=== PATIENT | female | born 1955 | race Caucasian/White ===

== ENCOUNTER → 2020-06-29 09:28 | Outpatient (BNVA) | payer BC, SELFPAY | PROVIDERS: PCP Internal Medicine; Referring Provider Internal Medicine; Visit Provider Internal Medicine Endocrinology, Diabetes & Metabolism | DX: E11.65 Type 2 diabetes mellitus with hyperglycemia (principal); Z79.4 Long term (current) use of insulin; E78.5 Hyperlipidemia, unspecified; I10 Essential (primary) hypertension; E04.2 Nontoxic multinodular goiter; E66.9 Obesity, unspecified; Z68.32 Body mass index [BMI] 32.0-32.9, adult | CPT/HCPCS: 82947 ==

== ENCOUNTER 2020-11-12 09:50 | Outpatient (REF) | payer BC, SELFPAY ==
[2020-11-12 11:35] LABS: Hematocrit 42.4 % (37-47); Hemoglobin 13.5 g/dl (12.0-16.0); Mean Corpuscular HGB Conc 31.8 g/dl (31.0-35.0); Mean Corpuscular Hemoglobin 25.5 pg (27.0-33.0); Mean Corpuscular Volume 80.2 fL (80-98); Mean Platelet Volume 11.1 fL (9.4-12.3); Platelet Count 228 X10*3/uL (160-400); Red Blood Count 5.29 X10*6/uL (4.20-5.50); Red Cell Distribution Width 13.5 % (11.0-16.0); White Blood Count 7.4 X10*3/uL (4.8-10.8)
[2020-11-12 12:06] LABS: Alanine Aminotransferase 25 U/L (0-31); Albumin Level 4.3 g/dL (3.5-5.0); Alkaline Phosphatase 79 U/L (39-117); Anion Gap 12 (12-20); Aspartate Amino Transferase 22 U/L (5-31); Bilirubin Total 0.4 mg/dL (0.0-1.0); Blood Urea Nitrogen 14 mg/dL (9-16); Calcium 9.2 mg/dL (8.4-10.2); Carbon Dioxide 29 mmol/L (22-29); Chloride 104 mmol/L (96-108); Cholesterol 141 mg/dL; Estimated Average Glucose 174 mg/dL; Estimated Glomerular Filt Rate > 60; Glucose Fasting 163 mg/dL (60-99); HDL Cholesterol 33 mg/dL; Hemoglobin A1c % 7.7 %; LDL Cholesterol Calculated 90 mg/dl; Potassium 4.3 mmol/L (3.3-5.1); Sodium 141 mmol/L (135-145); Total Protein 7.4 g/dL (6.5-8.0); Triglycerides 94 mg/dL
[2020-11-12 12:10] LABS: TSH reflex Free T4 1.08 uIU/mL (0.32-4.0)
[2020-11-12 12:14] LABS: Creatinine Urine 146.44 mg/dL; Microalbum/Creatinine Ratio Ur 13.6 ug/mg cr
== END 2020-11-12 09:51 | disposition home or self-care (01) ==
LOC: HO.LAB 09:50
PROVIDERS: Internal Medicine; PCP Internal Medicine; Visit Provider Internal Medicine
DX: E04.2 Nontoxic multinodular goiter (principal); E11.9 Type 2 diabetes mellitus without complications; E78.5 Hyperlipidemia, unspecified; I10 Essential (primary) hypertension
CPT/HCPCS: 36415; 80053; 80061; 82043; 83036; 84443; 85027; C9803; U0003; U0005

== ENCOUNTER 2020-11-12 09:56 | Outpatient (REF) | payer BC, SELFPAY | END 2020-11-12 09:57 | disposition home or self-care (01) | LOC: HO.LAB 09:56 | PROVIDERS: PCP Internal Medicine; Visit Provider Internal Medicine | DX: Z13.89 Encounter for screening for other disorder (principal) ==

== ENCOUNTER → 2020-12-14 07:49 | Outpatient (BNVA) | payer BC, SELFPAY | PROVIDERS: PCP Internal Medicine; Visit Provider Internal Medicine Endocrinology, Diabetes & Metabolism | DX: E11.9 Type 2 diabetes mellitus without complications (principal); Z79.4 Long term (current) use of insulin; E78.5 Hyperlipidemia, unspecified; I10 Essential (primary) hypertension; E04.2 Nontoxic multinodular goiter; E66.9 Obesity, unspecified | CPT/HCPCS: 82947 ==

== ENCOUNTER 2020-12-18 16:25 | Outpatient (REF) | payer BC, SELFPAY ==
--- NOTE | ~2020-12-18 | MR_ITS ---
EXAMINATION: MR CERVICAL SPINE WITHOUT CONTRAST CLINICAL INFORMATION: Discomfort in neck with bilateral arm numbness. COMPARISON: None TECHNIQUE: MRI of the cervical spine was obtained using routine sequences without contrast. FINDINGS: VERTEBRAL BODIES AND PARASPINAL SOFT TISSUES: The marrow signal is within normal limits. There is qopr-lx-ppzniytr disc space narrowing with degenerative disc bulges and endplate spurring from the C4 through the C7 levels. There are no compression fractures or subluxations. There is a reversal of the normal cervical lordosis. Mild leftward curvature of the cervical spine also evident. The paraspinal soft tissues appear normal. The vertebral artery flow-voids are maintained. The lung apices are clear. CERVICOMEDULLARY JUNCTION AND VISUALIZED POSTERIOR FOSSA: The craniovertebral junction and imaged portions of the brain parenchyma are normal. No cord signal abnormality or syrinx is seen. SPINAL LEVELS: C2-C3: Very small central disc protrusion. No central canal stenosis or foraminal narrowing. C3-C4: No disc pathology. No central canal stenosis or foraminal narrowing. C4-C5: Broad-based disc-osteophyte complex mildly impresses upon the ventral cord with mild central canal stenosis and severe right foraminal encroachment. C5-C6: Retrosubluxation and disc-osteophyte complex with a right paracentral disc protrusion results in moderate central canal stenosis and xoau-uk-ogxvpsyd cord deformity with severe right foraminal encroachment and sboq-pe-tgknyukk left foraminal narrowing. C6-C7: Disc-osteophyte complex with moderate central canal stenosis. Small central disc protrusion also noted. Severe left foraminal narrowing and vowj-wj-vnhsqnpp right foraminal encroachment. C7-T1: No disc pathology. No central canal stenosis or foraminal narrowing. Left-sided hypertrophic facet arthropathy. MR/MR cervical spine wo con IMPRESSION: Multilevel cervical spondylosis, most significant at the C5-C6 and C6-C7 levels with moderate central canal stenosis and sogf-dv-bsikdnxx cord deformity. Small disc protrusions at both levels. Severe right foraminal narrowing at the C5-C6 level and significant left foraminal narrowing at the C6-C7 level. Shallow disc-osteophyte complex and mild central canal stenosis at C4-C5 with severe right foraminal narrowing.
== END 2020-12-18 16:26 | disposition home or self-care (01) ==
LOC: HO.MRI 16:25
PROVIDERS: Visit Provider Internal Medicine
DX: M47.12 Other spondylosis with myelopathy, cervical region (principal); M48.02 Spinal stenosis, cervical region
CPT/HCPCS: 72141

== ENCOUNTER 2021-04-05 09:58 | Outpatient (REF) | payer BC, SELFPAY ==
--- NOTE | ~2021-04-05 | US_ITS ---
EXAMINATION: US THYROID CLINICAL INFORMATION: Nontoxic multinodular goiter. COMPARISON: Thyroid ultrasound 04/02/2020 and 01/21/2019. TECHNIQUE: Linear transducer grayscale and color Doppler examination with attention to the region of the thyroid. FINDINGS: SIZE: Measurements of the thyroid lobes and nodules are given in sagittal, anteroposterior and transverse dimensions respectively. Right Thyroid Lobe: 5.9 x 1.9 x 2.0 cm, volume 11.8 mL. Previously 5.1 x 1.7 x 2.1 cm, volume 9.5 mL. Parenchyma: The gland echotexture is heterogeneous. Thyroid vascularity is normal. Left Thyroid Lobe: 5.7 x 1.8 x 1.6 cm, volume 8.6 mL. Previously 5.5 x 1.4 x 2.1 cm, volume 8.5 mL. Parenchyma: The gland echotexture is heterogeneous. Thyroid vascularity is normal. Isthmus: 0.6 cm in maximum AP dimension. Previously 0.5 cm. Estimated total number of nodules greater than or equal to 1 cm: 5. [employer] nodules are described as follows: 1. Location: Isthmus. Size: 1.1 x 0.6 x 1.0 cm, volume 0.34 mL. Previously: 1.3 x 0.6 x 1.1 cm, volume 0.46 mL. Nodule characteristics: Composition: Cannot be determined (2). Echogenicity: Hypoechoic (2). Shape: Not taller than wide (0). Margins: Smooth (0). Echogenic Foci: None (0). ACR TI-RADS total points: 4 ACR TI-RADS category: 4 Significant change in size (>/= 20% in 2 dimensions and minimal increase of 2 mm or 50% or greater increase in volume): No Change in features: No Change in ACR TI-RADS risk category: No 2. Location: Right upper pole. Size: 1.2 x 0.7 x 1.0 cm, volume 0.45 mL. Previously: 1.3 x 0.7 x 1.1 cm, volume 0.54 mL. Nodule characteristics: Composition: Spongiform (0). ACR TI-RADS total points: 0 ACR TI-RADS category: 1 Significant change in size (>/= 20% in 2 dimensions and minimal increase of 2 mm or 50% or greater increase in volume): No Change in features: No Change in ACR TI-RADS risk category: No 3. Location: Right mid pole. Size: 1.1 x 0.5 x 0.7 cm, volume 0.18 mL. Previously: Not documented. Nodule characteristics: Composition: Spongiform (0). ACR TI-RADS total points: 0 ACR TI-RADS category: 1 4. Location: Right mid pole. Size: 1.3 x 1.3 x 1.4 cm, volume 1.2 mL. Previously: 2.1 x 1.5 x 1.7 cm, volume 2.8 mL. Nodule characteristics: Composition: Spongiform (0). ACR TI-RADS total points: 0 ACR TI-RADS category: 1 Significant change in size (>/= 20% in 2 dimensions and minimal increase of 2 mm or 50% or greater increase in volume): No Change in features: No Change in ACR TI-RADS risk category: No 5. Location: Left upper pole. Size: 1.0 x 0.4 x 0.7 cm, volume 0.15 mL. Previously: 0.5 x 0.3 x 0.6 cm, volume 0.05 mL. Nodule characteristics: Composition: Spongiform (0). ACR TI-RADS total points: 0 ACR TI-RADS category: 1 Significant change in size (>/= 20% in 2 dimensions and minimal increase of 2 mm or 50% or greater increase in volume): Yes Change in features: No Change in ACR TI-RADS risk category: No NODES: No lymphadenopathy is seen in the tissue surrounding the thyroid gland. US/US thyroid IMPRESSION: 1. Bilateral thyroid nodules are redemonstrated, as above. Recommend continued ultrasound surveillance. 2. There is a mild goiter, right lobe greater than left. 3. There is heterogeneous thyroid echotexture, which can be associated with thyroiditis. ACR TI-RADS RECOMMENDATION REFERENCE: Ultrasound-guided fine-needle aspiration, followup ultrasound, no further follow up. * TR1 (0 point) and TR 2 (2 points): No FNA or follow up * TR3 (3 points): FNA if more than or equal to 2.5 cm in maximum dimension, followup ultrasound in 1, 3 and 5 years if 1.5 to 2.4 cm in maximum dimension. * TR4 (4-6 points): FNA if more than or equal to 1.5 cm in maximum dimension, followup ultrasound in 1, 2, 3 and 5 years if 1 to 1.4 cm in maximum dimension. * TR5 (more than or equal to 7 points): FNA if more than or equal to 1 cm in maximum dimension, followup ultrasound every year for 5 years if 0.5 to 0.9 cm in maximum dimension. * TR3, TR4 or TR5 nodules that are below the size threshold for follow up receive no follow up.
== END 2021-04-05 09:59 | disposition home or self-care (01) ==
LOC: HO.HMGCX 09:58
PROVIDERS: PCP Internal Medicine; Visit Provider Internal Medicine
DX: E04.2 Nontoxic multinodular goiter (principal)
CPT/HCPCS: 76536

== ENCOUNTER 2021-04-08 11:48 | Outpatient (REF) | payer BC, SELFPAY | END 2021-04-08 11:49 | disposition home or self-care (01) | LOC: HO.LNP 11:48 | PROVIDERS: Visit Provider Hospitalist | DX: Z20.822 Contact with and (suspected) exposure to COVID-19 (principal); J01.90 Acute sinusitis, unspecified | CPT/HCPCS: U0003; U0005 ==

== ENCOUNTER → 2021-04-21 08:55 | Outpatient (BNVA) | payer BC, SELFPAY | PROVIDERS: PCP Internal Medicine; Visit Provider Internal Medicine | DX: E11.9 Type 2 diabetes mellitus without complications (principal); E78.5 Hyperlipidemia, unspecified; E04.2 Nontoxic multinodular goiter; E55.9 Vitamin D deficiency, unspecified; I10 Essential (primary) hypertension | CPT/HCPCS: 82947; 83036 ==

== ENCOUNTER 2021-08-12 08:51 | Outpatient (REF) | payer BC, SELFPAY ==
--- NOTE | 2021-08-12 09:57 | P.BOP_ITS ---
Brief Operative Note Date of Service: 08/12/21 Pre-op diagnosis: Multinodular Thyroid Procedure: This is doctor Chloe Hood. This is an ultrasound-guided fine-needle aspiration report. Date of 08/12/2021 Examination: FNA Biopsy of thyroid nodules Indication: Multinodular Thyroid Porcedure: Procedure was explained to the patient. Alternatives, the risk and benefits were discussed. Written consent was obtained. A time-out was also obtained. After sterile preparation, fine-needle aspiration of a left mid pole 1.1 cm thyroid nodule was performed using direct ultrasound guidance to confirm accurate needle placement. Four aspirations were made using 27 gauge needles. An additional 2 aspirations were made using 25 guage needles. Samples were submitted for cytology. One pass was dedicated for [employer] sequencing speech and language assistant testing. The patient tolerated the procedure well. Aftercare instructions were provided. Impression: Uncomplicated fine needle aspiration biopsy of a left mid pole 1.1 cm thyroid nodule under ultrasound guidance. She additionally has a right isthmus 1.1 cm, right mid pole 1.4 and right mid pole 1.7 cm thyroid nodules that require FNA biopsy. She was unable to tolerate FNA biopsy of these nodules today so she will be called back at a later date for this. Surgeon: Chloe Hood, DO Was an Aesthetics Instructor used for this Procedure?: No Estimated blood loss (mL): 0
[2021-08-12] MEDS: Lidocaine HCl 1 % MPF 5 ML VIAL 2 ML SUBCUT (11:40)
== END 2021-08-12 08:52 | disposition home or self-care (01) ==
LOC: HO.US 08:51
PROVIDERS: Visit Provider Internal Medicine
DX: E04.2 Nontoxic multinodular goiter (principal)
CPT/HCPCS: 10005; 88172; 88173; 88177; 88305

== ENCOUNTER 2021-08-24 07:10 | Outpatient (REF) | payer BC, SELFPAY ==
[2021-08-24 11:36] LABS: Estimated Average Glucose 206 mg/dL; Hemoglobin A1c % 8.8 %
[2021-08-24 12:05] LABS: Alanine Aminotransferase 29 U/L (0-31); Albumin Level 4.2 g/dL (3.5-5.0); Alkaline Phosphatase 69 U/L (39-117); Anion Gap 16 (12-20); Aspartate Amino Transferase 25 U/L (5-31); Bilirubin Total 0.6 mg/dL (0.0-1.0); Blood Urea Nitrogen 12 mg/dL (9-16); Calcium 9.9 mg/dL (8.4-10.2); Carbon Dioxide 28 mmol/L (22-29); Chloride 104 mmol/L (96-108); Cholesterol 149 mg/dL; Estimated Glomerular Filt Rate > 60; Glucose Fasting 109 mg/dL (60-99); HDL Cholesterol 30 mg/dL; LDL Cholesterol Calculated 97 mg/dl; Potassium 4.2 mmol/L (3.3-5.1); Sodium 144 mmol/L (135-145); Total Protein 7.6 g/dL (6.5-8.0); Triglycerides 111 mg/dL
[2021-08-24 12:16] LABS: Creatinine Urine 153.38 mg/dL; Microalbum/Creatinine Ratio Ur 17.6 ug/mg cr
[2021-08-25 09:16] LABS: LDL Cholesterol Direct 104 mg/dL (<100)
== END 2021-08-24 07:11 | disposition home or self-care (01) ==
LOC: HO.HMGCLDS 07:10
PROVIDERS: Referring Provider Internal Medicine; Visit Provider Internal Medicine
DX: E11.9 Type 2 diabetes mellitus without complications (principal); I10 Essential (primary) hypertension
CPT/HCPCS: 36415; 80053; 80061; 82043; 83036; 83721

== ENCOUNTER → 2021-08-25 10:23 | Outpatient (BNVA) | payer BC, SELFPAY | PROVIDERS: PCP Internal Medicine; Visit Provider Internal Medicine ==

== ENCOUNTER → 2021-10-20 08:44 | Outpatient (BNVA) | payer BC, SELFPAY | PROVIDERS: PCP Internal Medicine; Visit Provider Internal Medicine | DX: E04.2 Nontoxic multinodular goiter (principal); E78.5 Hyperlipidemia, unspecified; E55.9 Vitamin D deficiency, unspecified; I10 Essential (primary) hypertension; E11.9 Type 2 diabetes mellitus without complications | CPT/HCPCS: 82947 ==

== ENCOUNTER → 2021-11-18 10:58 | Outpatient (BNVA) | payer BC, SELFPAY | PROVIDERS: PCP Internal Medicine; Visit Provider Registered Nurse Diabetes Educator | DX: Z13.89 Encounter for screening for other disorder (principal) ==

== ENCOUNTER 2021-11-22 10:04 | Outpatient (REF) | payer BC, SELFPAY ==
--- NOTE | ~2021-11-22 | XR_ITS ---
EXAMINATION: XR KNEE AP STANDING-BILATERAL XR KNEE-LATERAL VIEW-BILATERAL CLINICAL INFORMATION: Right knee pain. COMPARISON: None TECHNIQUE: AP bilateral standing view of the knees was obtained. Additional weightbearing lateral view only of each knee was also obtained. FINDINGS: Right knee: The bony alignments are intact. The cortices are intact. Articular margins, joint space appear unremarkable. No evidence of any effusion. Subcentimeter oval shaped calcification is noted projecting over the medial femoral condyle, most consistent with medial collateral ligamentous calcification. Left knee: The bony alignments are intact. The cortices are intact. Articular margins, joint space appear unremarkable. No evidence of any joint effusion. Soft tissues are unremarkable. XR/XR knee standing BI IMPRESSION: 1. Subcentimeter oval-shaped soft tissue calcification projecting over the right medial femoral condyle, most consistent with medial collateral ligamentous calcification. 2. Radiographically unremarkable left knee.
== END 2021-11-22 10:05 | disposition home or self-care (01) ==
LOC: HO.HMGCX 10:04
PROVIDERS: Visit Provider Internal Medicine
DX: M25.561 Pain in right knee (principal); M25.562 Pain in left knee
CPT/HCPCS: 73565

== ENCOUNTER 2022-01-04 09:00 | Outpatient (RCR) | payer BC, SELFPAY ==
--- NOTE | 2021-12-10 16:16 | MHC.PT.EP ---
[facility] [place] Office [place] [facility] [place] [facility] [address] Xavier Swanson [address] [phone] F: [phone] F: [phone] F: [phone] F: [phone] Physical Therapy Plan of Care Date of Evaluation: Date of Surgery: Diagnosis: B knee pain Assessment: Pt is a 66 y/o female referred to PT for eval and treat of B knee pain who presents with signs and Sx consistent with R > L knee dysfunction resulting in decreased tolerance and ability to perform walking for long duration , standing tasks for duration, negotiating stairs, performing squatting activities and heavy HH chores secondary to decreased B hip and knee strength, as well as, increased quad tissue tension, and pain. Pt is deemed an appropriate candidate to receive skilled PT in order to address her physical limitations to improve her functional ability. Frequency and Duration: The patient will be seen 2 x/wk x 4 wks. Short Term Goals: Initiate HEP. Vamp Maker Goals: I with HEP. Pt will be able to negotiate 1 fl of stairs with at most a little bit of difficulty; initial: quite a bit of difficulty. Pt will be able to walk 1 mile with managed Sx; initial: moderate difficulty. Improve b knee ext MMT by at least 1/2 MMT; initial: R 4/5, L 4+/5 Treatment Plan: Modalities to reduce pain, spasms and effusion. Manual therapy to restore motion and function. Therapeutic exercise to improve strength and flexibility. Neuromuscular re-education for posture and balance. Therapeutic activities to return to functional activities of daily living. Electronically signed by: Wicho Rayo PT. Please sign and return to therapist. Thank you for your referral.
--- NOTE | 2022-03-30 16:07 | MHC.PT.DC ---
[facility] [place] Office [place] Office [place] Office [address] Xavier Swanson [address] [phone] F: [phone] F: [phone] F: [phone] F: [phone] Physical Therapy Discharge Report Diagnosis: B knee pain Date of Surgery: Date of Evaluation: 12/10/21 Date of Discharge: 03/30/22 Treatments to Date: 4 Cancellations to Date: No Shows to Date: Discharge Status: Patient Elected to Stop Discharge Summary: Pt TTP patella tendon. Patella hypo mobile laterally. Decreased c/o pain after manual RX. Pt reducing to 1 x week due to busy reza and high co pay Electronically signed by: Wicho Rayo PT. Please sign and return to therapist. Thank you for your referral.
== END 2022-03-30 16:06 | disposition home or self-care (01) ==
LOC: HO.PTCHIC 09:00
PROVIDERS: PCP Internal Medicine; Visit Provider Internal Medicine
DX: M25.561 Pain in right knee (principal); M25.562 Pain in left knee
CPT/HCPCS: 97110; 97140; 97161

== ENCOUNTER 2022-04-15 07:25 | Outpatient (REF) | payer BC, SELFPAY ==
--- NOTE | ~2022-04-15 | XR_ITS ---
EXAMINATION: XR KNEE, RIGHT ONE VIEW XR KNEE, LEFT ONE VIEW CLINICAL INFORMATION: Pain. COMPARISON: Bilateral knee radiographs dated 11/22/2021. TECHNIQUE: [place] view of the right and left knee. FINDINGS: RIGHT KNEE: Normal patellofemoral alignment. Mild patellofemoral compartment joint space narrowing with tiny marginal osteophytes, unchanged. No lytic or blastic osseous lesion. LEFT KNEE: Normal patellofemoral alignment. Mild patellofemoral compartment joint space narrowing with tiny marginal osteophytes, unchanged. No lytic or blastic osseous lesion. XR/XR knee LT 1V IMPRESSION: RIGHT KNEE: Mild patellofemoral compartment osteoarthritis, unchanged. Normal alignment. LEFT KNEE: Mild patellofemoral compartment osteoarthritis, unchanged. Normal alignment.
--- NOTE | ~2022-04-15 | XR_ITS ---
EXAMINATION: XR KNEE, RIGHT ONE VIEW XR KNEE, LEFT ONE VIEW CLINICAL INFORMATION: Pain. COMPARISON: Bilateral knee radiographs dated 11/22/2021. TECHNIQUE: [place] view of the right and left knee. FINDINGS: RIGHT KNEE: Normal patellofemoral alignment. Mild patellofemoral compartment joint space narrowing with tiny marginal osteophytes, unchanged. No lytic or blastic osseous lesion. LEFT KNEE: Normal patellofemoral alignment. Mild patellofemoral compartment joint space narrowing with tiny marginal osteophytes, unchanged. No lytic or blastic osseous lesion. XR/XR knee RT 1V IMPRESSION: RIGHT KNEE: Mild patellofemoral compartment osteoarthritis, unchanged. Normal alignment. LEFT KNEE: Mild patellofemoral compartment osteoarthritis, unchanged. Normal alignment.
== END 2022-04-15 07:26 | disposition home or self-care (01) ==
LOC: HO.HOSX 07:25
PROVIDERS: Visit Provider Physician Assistant
DX: M25.561 Pain in right knee (principal); M25.562 Pain in left knee
CPT/HCPCS: 73560

== ENCOUNTER 2022-06-23 13:19 | Outpatient (REF) | payer BC, SELFPAY ==
--- NOTE | 2022-06-23 08:30 | EMG_ITS ---
Right median and ulnar motor and sensory studies were performed. Right radial sensory studies were performed and EMG study was performed. IMPRESSION: 1. 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 2. Mild right ulnar neuropathy across cubital tunnel. MD AMITA Anderson/ROZINA / [id number]
== END 2022-06-23 13:20 | disposition home or self-care (01) ==
LOC: HO.NEURO 13:19
PROVIDERS: PCP Internal Medicine; Visit Provider Internal Medicine
DX: G56.01 Carpal tunnel syndrome, right upper limb (principal)
CPT/HCPCS: 95886; 95909

== ENCOUNTER 2022-06-28 11:28 | Outpatient (REF) | payer BC, SELFPAY ==
[2022-06-28 14:26] LABS: Estimated Average Glucose 203 mg/dL; Hemoglobin A1c % 8.7 %
[2022-06-28 15:03] LABS: Free T4 (Free Thyroxine) 0.85 ng/dL (0.71-1.85); Thyroid Stimulating Hormone 0.57 uIU/mL (0.32-4.0); Vitamin D 25-OH Total 21.2 ng/mL (>30)
[2022-06-28 15:04] LABS: Alanine Aminotransferase 25 U/L (0-31); Albumin Level 4.1 g/dL (3.5-5.0); Alkaline Phosphatase 65 U/L (39-117); Anion Gap 12 (12-20); Aspartate Amino Transferase 21 U/L (5-31); Bilirubin Total 0.5 mg/dL (0.0-1.0); Blood Urea Nitrogen 12 mg/dL (9-16); Calcium 9.3 mg/dL (8.4-10.2); Carbon Dioxide 26 mmol/L (22-29); Chloride 105 mmol/L (96-108); Cholesterol 123 mg/dL; Estimated Glomerular Filt Rate > 60; Glucose Fasting 192 mg/dL (60-99); Glucose Random 192 mg/dL (60-115); HDL Cholesterol 33 mg/dL; LDL Cholesterol Calculated 74 mg/dl; Potassium 4.3 mmol/L (3.3-5.1); Sodium 139 mmol/L (135-145); TSH reflex Free T4 0.58 uIU/mL (0.32-4.0); Total Protein 7.2 g/dL (6.5-8.0); Triglycerides 80 mg/dL
[2022-06-28 15:06] LABS: Creatinine Urine 248.45 mg/dL; Microalbum/Creatinine Ratio Ur 11.2 ug/mg cr
[2022-07-01 09:47] LABS: LDL Cholesterol Direct 83 mg/dL (<100)
== END 2022-06-28 11:29 | disposition home or self-care (01) ==
LOC: HO.HMGCLDS 11:28
PROVIDERS: Absent Provider Internal Medicine; PCP Internal Medicine; Visit Provider Internal Medicine
DX: E11.9 Type 2 diabetes mellitus without complications (principal); I10 Essential (primary) hypertension; E04.2 Nontoxic multinodular goiter; E55.9 Vitamin D deficiency, unspecified; E78.5 Hyperlipidemia, unspecified
CPT/HCPCS: 36415; 80053; 80061; 82043; 82306; 83036; 83721; 84439; 84443

== ENCOUNTER 2022-12-06 09:12 | Outpatient (REF) | payer BC, SELFPAY ==
[2022-12-06 11:14] LABS: MANUAL DIFF FLAG NO
[2022-12-06 11:32] LABS: Basophils Absolute Auto 0.1 X10*3/uL (0.0-0.2); Basophils Percent Auto 0.9 % (0-2); Eosinophils Absolute Auto 0.1 X10*3/uL (0.0-0.4); Eosinophils Percent Auto 2.4 % (0-4); Hematocrit 42.2 % (37.0-47.0); Hemoglobin 13.6 g/dl (12.0-16.0); Imm Gran Abs Auto 0.02 X10*3/uL (0.00-0.03); Imm Gran Pct Auto 0.3 % (0.0-0.4); Lymphocytes Absolute Auto 1.6 X10*3/uL (1.2-4.9); Lymphocytes Percent Auto 28.4 % (20-40); Mean Corpuscular HGB Conc 32.2 g/dl (31.0-35.0); Mean Corpuscular Hemoglobin 25.4 pg (27.0-33.0); Mean Corpuscular Volume 78.9 fL (80.0-98.0); Mean Platelet Volume 10.5 fL (9.4-12.3); Monocytes Absolute Auto 0.5 X10*3/uL (0.1-1.2); Monocytes Percent Auto 7.9 % (2-11); Neutrophils Absolute Auto 3.4 x10*3/uL (2.0-8.3); Neutrophils Percent Auto 60.1 % (45-73); Platelet Count 201 X10*3/uL (160-400); Red Blood Count 5.35 X10*6/uL (4.20-5.50); Red Cell Distribution Width 13.6 % (11.0-16.0); White Blood Count 5.7 X10*3/uL (4.8-10.8)
[2022-12-06 11:42] LABS: Estimated Average Glucose 203 mg/dL; Hemoglobin A1c % 8.7 %
[2022-12-06 11:57] LABS: Alanine Aminotransferase 27 U/L (0-31); Albumin Level 4.1 g/dL (3.5-5.0); Alkaline Phosphatase 68 U/L (39-117); Anion Gap 12 (12-20); Aspartate Amino Transferase 22 U/L (5-31); Bilirubin Total 0.6 mg/dL (0.0-1.0); Blood Urea Nitrogen 11 mg/dL (9-16); Calcium 9.6 mg/dL (8.4-10.2); Carbon Dioxide 26 mmol/L (22-29); Chloride 106 mmol/L (96-108); Cholesterol 142 mg/dL; Estimated Glomerular Filt Rate > 60; Glucose Fasting 180 mg/dL (60-99); HDL Cholesterol 32 mg/dL; LDL Cholesterol Calculated 98 mg/dl; Potassium 4.4 mmol/L (3.3-5.1); Sodium 140 mmol/L (135-145); Total Protein 7.2 g/dL (6.5-8.0); Triglycerides 64 mg/dL
[2022-12-06 12:07] LABS: Creatinine Urine 84.21 mg/dL; Microalbum/Creatinine Ratio Ur 9.5 ug/mg cr
[2022-12-06 12:16] LABS: TSH reflex Free T4 0.73 uIU/mL (0.32-4.0); Vitamin D 25-OH Total 63.7 ng/mL (>30)
== END 2022-12-06 09:13 | disposition home or self-care (01) ==
LOC: HO.HMGCLDS 09:12
PROVIDERS: PCP Internal Medicine; Visit Provider Internal Medicine
DX: E11.9 Type 2 diabetes mellitus without complications (principal); E55.9 Vitamin D deficiency, unspecified; E78.5 Hyperlipidemia, unspecified; I10 Essential (primary) hypertension; M79.7 Fibromyalgia
CPT/HCPCS: 36415; 80053; 80061; 82043; 82306; 83036; 84443; 85025

== ENCOUNTER 2023-07-25 09:57 | Outpatient (REF) | payer MEDICARE, SELFPAY ==
[2023-07-25 13:12] LABS: MANUAL DIFF FLAG NO
[2023-07-25 13:29] LABS: Basophils Absolute Auto 0.1 X10*3/uL (0.0-0.2); Basophils Percent Auto 0.8 % (0-2); Eosinophils Absolute Auto 0.1 X10*3/uL (0.0-0.4); Hematocrit 41.5 % (37.0-47.0); Hemoglobin 13.6 g/dl (12.0-16.0); Imm Gran Abs Auto 0.02 X10*3/uL (0.00-0.03); Imm Gran Pct Auto 0.3 % (0.0-0.4); Lymphocytes Absolute Auto 1.6 X10*3/uL (1.2-4.9); Lymphocytes Percent Auto 25.7 % (20-40); Mean Corpuscular HGB Conc 32.8 g/dl (31.0-35.0); Mean Corpuscular Hemoglobin 26.3 pg (27.0-33.0); Mean Corpuscular Volume 80.3 fL (80.0-98.0); Mean Platelet Volume 10.7 fL (9.4-12.3); Monocytes Absolute Auto 0.5 X10*3/uL (0.1-1.2); Monocytes Percent Auto 7.6 % (2-11); Neutrophils Absolute Auto 3.9 x10*3/uL (2.0-8.3); Neutrophils Percent Auto 63.6 % (45-73); Platelet Count 207 X10*3/uL (160-400); Red Blood Count 5.17 X10*6/uL (4.20-5.50); Red Cell Distribution Width 13.8 % (11.0-16.0); White Blood Count 6.2 X10*3/uL (4.8-10.8)
[2023-07-25 13:43] LABS: Estimated Average Glucose 177 mg/dL; Hemoglobin A1c % 7.8 % (<6.0)
[2023-07-25 13:48] LABS: Alanine Aminotransferase 27 U/L (0-31); Albumin Level 4.1 g/dL (3.5-5.0); Alkaline Phosphatase 63 U/L (39-117); Anion Gap 12 (12-20); Aspartate Amino Transferase 26 U/L (5-31); Bilirubin Total 0.6 mg/dL (0.0-1.0); Blood Urea Nitrogen 10 mg/dL (9-16); Calcium 9.3 mg/dL (8.4-10.2); Carbon Dioxide 28 mmol/L (22-29); Chloride 106 mmol/L (96-108); Cholesterol 138 mg/dL (<200); Estimated Glomerular Filt Rate > 60; Glucose Fasting 95 mg/dL (60-99); HDL Cholesterol 33 mg/dL (>40); LDL Cholesterol Calculated 90 mg/dL (<100); Potassium 4.3 mmol/L (3.3-5.1); Sodium 142 mmol/L (135-145); Total Protein 7.5 g/dL (6.5-8.0); Triglycerides 78 mg/dL (<150)
[2023-07-25 14:07] LABS: Creatinine Urine 251.85 mg/dL
== END 2023-07-25 09:58 | disposition home or self-care (01) ==
LOC: HO.HMGCLDS 09:57
PROVIDERS: PCP Internal Medicine; Visit Provider Internal Medicine
DX: Z00.00 Encounter for general adult medical examination without abnormal findings (principal); E11.9 Type 2 diabetes mellitus without complications; I10 Essential (primary) hypertension; E78.5 Hyperlipidemia, unspecified
CPT/HCPCS: 36415; 80053; 80061; 82043; 82570; 83036; 85025

== ENCOUNTER 2023-07-27 08:47 | Outpatient (AMB) | payer MEDICARE, SELFPAY ==
[2023-07-27 08:53] VITALS: BP 120/76; PULSE 86; O2SAT 98; BMI 33.1
--- NOTE | 2023-07-27 08:53 | A.OFFPC_ITS ---
Vital Signs 07/27/23 08:53 Height 5 ft 4.5 in Weight 196 lb BMI 33.1 BP 120/76 Blood Pressure Location Rt brachial Position Sitting Pulse 86 Pulse Source Pulse Oximeter Pulse Oximetry (%) 98 Intake Visit Reasons: Annual PE Intake Note: pt is here for annual exam physical exam, last colonoscopy 2012 ( repeat every 10 years) due 2023. Safety Consultant Required: No Accompanied by: Self / Same As Patient Allergies canagliflozin [Invokana] Allergy (Unknown, Verified 07/27/23 08:54) frequent UTI dulaglutide [Trulicity] Allergy (Unknown, Verified 07/27/23 08:54) vomiting metformin Allergy (Unknown, Verified 07/27/23 08:54) diarrhea atorvastatin [From Lipitor] Adverse Reaction (Intermediate, Verified 07/27/23 08:54) Muscle Pain Olmesartan Medoxomil Allergy (Unknown, Uncoded 12/09/22 09:37) palpitations Medication List - Last Reconciled 07/27/23 by Jessica Vernon MD blood-glucose sensor (Dexcom G6 Sensor device) 1 ea topical .Every 10 days 90 days blood-glucose transmitter 1 transmitter every 3 months. Use as directed. cetirizine (Zyrtec) 10 mg PO DAILY PRN [CPAP Supplies 12 cm H2O,via full mask; DX NORA] cyclosporine 0.05% (Restasis) 1 drp ophthalmic (eye) BID escitalopram oxalate 10 mg PO DAILY esomeprazole magnesium (Nexium 24HR) 20 mg PO DAILY PRN insulin glargine (Lantus Solostar U-100 Insulin) 75 units (0.75 mL) subcut DAILY 90 days insulin lispro (Humalog KwikPen (U-100) Insulin) 1 to 20 unts before each meal based on sliding scale subcut 4 times a day; 90 days irbesartan 75 MG, 1 and 1/2 tabl PO daily; lancets As directed pen needle, diabetic (BD Ultra-Fine [place] Pen Needle) 1 ea subcut .five times a day 90 days Tobacco use date assessed: 07/27/23 Fall risk assessment: No Falls in past year Last assessed Fall Risk: 07/27/23 Dental Screening Dental Screen Date: 07/27/23 Did you have a dental visit in the last 12 months?: Yes Did you have a dental problem in the last 6 months where you did not have access to dental care?: No Was dental information given to patient?: Patient has dentist HPI Annual PE HPI Details Pt presents for PE. Patient has been under lot of stress related to her nephew diagnosed with end-stage liver cirrhosis. Patient reports improved diabetes controlled with fasting glucose between 120-160 PFSH Medical History Knee pain, right Knee pain, bilateral Vitamin D deficiency Cervical disc disease with myelopathy Cataract Rash Tinnitus Obesity Non-toxic multinodular goiter FCI (current) use of insulin NORA (obstructive sleep apnea) Radiculopathy, cervical region Diabetic eye exam History of mammogram Left shoulder tendinitis Anxiety and depression Hyperlipidemia Hypertension Type 2 diabetes mellitus Surgical History History of carpal tunnel surgery Hx of biopsy Hx of cataract surgery S/P MALACHI-BSO H/O colonoscopy Family History Father Heart problem Diabetes Mother Mental health disorder Social History Housing: House Alcohol intake: never Patient Tobacco Use Status: Former Tobacco user e-Cigarette/Vaping Use: Never Used service: No Current occupational status: retired Cognitive needs: No Hearing needs: No Vision needs: Yes Questionnaire Thrive Questionnaire Date Thrive assessed: 12/09/22 DEBBI-7 AMB Questionnaire DEBBI-7 Date DEBBI - 7 assessed: 12/09/22 Source: Developed by Drs. Marco Antonio Mary, Dinorah Sherman, Rafael Vera and colleagues, with an educational ignacio from [employer]. Review of Systems Const All systems reviewed & are unremarkable except as noted in HPI and below Reports no additional complaints Eyes Reports no additional complaints ENT Reports no additional complaints Card Reports no additional complaints Resp Reports no additional complaints GI Reports no additional complaints Reports no additional complaints Physical exam (Primary Care) Vital Signs: Last Vital Signs Pulse 86 07/27/23 08:53 BP 152/86 H 07/27/23 08:53 Pulse Ox 98 07/27/23 08:53 BMI result Body Mass Index 33.1 Tobacco/Smoking Status: Tobacco use Status Tobacco use date assessed 07/27/23 07/27/23 08:55 Patient Tobacco Use Status Former Tobacco user 07/27/23 08:55 e-Cigarette/Vaping Use Never Used 07/27/23 08:55 Thrive Assessment: Date of Thrive Assessment Date Thrive assessed 12/09/22 07/27/23 08:55 Const General: no acute distress HENMT Head: Yes normal to inspection Ears: hearing grossly normal bilaterally General nose exam: Normal external nose present Face and sinus: Yes normal facial exam Mouth: Normal oral and palatal mucosa present Throat: Yes posterior oropharynx normal Eyes General: appearance normal, both eyes and all related structures Neck Neck: Yes no lymphadenopathy and Yes supple Resp Effort & Inspection: normal respiratory effort Auscultation: clear to auscultation bilaterally Cardio Rhythm: regular rhythm Heart sounds: S1 normal heart sound present and S2 normal heart sound present GI Inspection: Yes normal to inspection Palpation (GI): Soft to palpation Percussion: Yes normal to percussion Auscultation: normal bowel sounds Extrem Other: Diabetic foot exam skin is intact monofilament and vibration intact bilateral General: Yes no clubbing, cyanosis or edema Assessment and Plan Assessment & Plan (1) Annual physical exam: Code(s): Z00.00 - Encounter for general adult medical examination without abnormal findings Plan: well balanced diet, exercise discussed, (2) Type 2 diabetes mellitus: Comment: f/u Endo Code(s): E11.9 - Type 2 diabetes mellitus without complications Plan: A1C is 7.8, ADA diet, increase exercise, weight loss discussed (3) Hypertension: Code(s): I10 - Essential (primary) hypertension Plan: Continue Irbesartan (4) Anxiety and depression: Code(s): F41.9 - Anxiety disorder, unspecified; F32.9 - Major depressive disorder, single episode, unspecified Plan: Continue escitalopram, mindfulness and stress management discussed with the patient, follow-up in 6 months with a fasting labs Orders: Orders Lipid Panel 6 Months E11.9 - Type 2 diabetes mellitus without complications, E78.5 - Hyperlipidemia, unspecified, I10 - Essential (primary) hypertension, Z00.00 - Encounter for general adult medical examination without abnormal findings Hemoglobin A1c 6 Months E11.9 - Type 2 diabetes mellitus without complications, E78.5 - Hyperlipidemia, unspecified, I10 - Essential (primary) hypertension, Z00.00 - Encounter for general adult medical examination without abnormal findings Complete Blood Count Auto Diff 6 Months E11.9 - Type 2 diabetes mellitus without complications, E78.5 - Hyperlipidemia, unspecified, I10 - Essential (primary) hypertension, Z00.00 - Encounter for general adult medical examination without abnormal findings Comprehensive [place]. Panel Fast 6 Months E11.9 - Type 2 diabetes mellitus without complications, E78.5 - Hyperlipidemia, unspecified, I10 - Essential (primary) hypertension, Z00.00 - Encounter for general adult medical examination without abnormal findings Microalbumin, Random (w Creat) 6 Months E11.9 - Type 2 diabetes mellitus without complications, E78.5 - Hyperlipidemia, unspecified, I10 - Essential (primary) hypertension, Z00.00 - Encounter for general adult medical examination without abnormal findings Referrals Cologuard Test E11.9 - Type 2 diabetes mellitus without complications, E78.5 - Hyperlipidemia, unspecified, I10 - Essential (primary) hypertension, Z00.00 - Encounter for general adult medical examination without abnormal findings, Z12.11 - Encounter for screening for malignant neoplasm of colon, Z12.12 - Encounter for screening for malignant neoplasm of rectum Coding Level of Care Code Est Pt Prev Care >65y(28967) Diagnoses Annual physical exam Z00.00 Type 2 diabetes mellitus E11.9 Hypertension I10 Anxiety and depression F41.9; F32.9
== END 2023-07-27 09:45 | disposition home or self-care (01) ==
PROVIDERS: PCP Internal Medicine; Visit Provider Internal Medicine
DX: Z00.00 Encounter for general adult medical examination without abnormal findings (principal); E11.9 Type 2 diabetes mellitus without complications; I10 Essential (primary) hypertension; Z23 Encounter for immunization; F41.9 Anxiety disorder, unspecified; F32.9 Major depressive disorder, single episode, unspecified
CPT/HCPCS: 90471; 90677; 99397

== ENCOUNTER 2023-11-07 09:49 | Outpatient (REF) | payer MEDICARE, SELFPAY ==
[2023-11-07 13:17] LABS: Estimated Average Glucose 194 mg/dL; Hemoglobin A1c % 8.4 % (<6.0)
[2023-11-07 13:41] LABS: Alanine Aminotransferase 29 U/L (0-31); Anion Gap 11 (12-20); Aspartate Amino Transferase 23 U/L (5-31); Blood Urea Nitrogen 12 mg/dL (9-16); Calcium 9.3 mg/dL (8.4-10.2); Carbon Dioxide 27 mmol/L (22-29); Chloride 105 mmol/L (96-108); Cholesterol 144 mg/dL (<200); Estimated Glomerular Filt Rate > 60; Glucose Random 186 mg/dL (60-115); HDL Cholesterol 37 mg/dL (>40); LDL Cholesterol Calculated 93 mg/dL (<100); Potassium 4.2 mmol/L (3.3-5.1); Sodium 139 mmol/L (135-145); Triglycerides 74 mg/dL (<150)
[2023-11-07 13:42] LABS: TSH reflex Free T4 0.67 uIU/mL (0.32-4.0)
[2023-11-07 13:56] LABS: Creatinine Urine 162.66 mg/dL; Microalbum/Creatinine Ratio Ur 7.9 ug/mg cr (<30)
== END 2023-11-07 09:50 | disposition home or self-care (01) ==
LOC: HO.HMGCLDS 09:49
PROVIDERS: Physician Assistant; PCP Internal Medicine; Visit Provider Internal Medicine
DX: E11.42 Type 2 diabetes mellitus with diabetic polyneuropathy (principal); E04.2 Nontoxic multinodular goiter
CPT/HCPCS: 36415; 80048; 80061; 82043; 82570; 83036; 84443; 84450; 84460

== ENCOUNTER 2024-03-25 08:39 | Outpatient (REF) | payer MEDICARE, SELFPAY ==
[2024-03-25 10:32] LABS: MANUAL DIFF FLAG NO
[2024-03-25 10:40] LABS: Basophils Absolute Auto 0.1 X10*3/uL (0.0-0.2); Basophils Percent Auto 0.8 % (0-2); Eosinophils Absolute Auto 0.3 X10*3/uL (0.0-0.4); Eosinophils Percent Auto 4.5 % (0-4); Hematocrit 41.3 % (37.0-47.0); Hemoglobin 13.5 g/dl (12.0-16.0); Imm Gran Abs Auto 0.02 X10*3/uL (0.00-0.03); Imm Gran Pct Auto 0.3 % (0.0-0.4); Lymphocytes Absolute Auto 2.2 X10*3/uL (1.2-4.9); Lymphocytes Percent Auto 30.7 % (20-40); Mean Corpuscular HGB Conc 32.7 g/dl (31.0-35.0); Mean Corpuscular Hemoglobin 26.2 pg (27.0-33.0); Mean Platelet Volume 10.5 fL (9.4-12.3); Monocytes Absolute Auto 0.6 X10*3/uL (0.1-1.2); Monocytes Percent Auto 8.3 % (2-11); Neutrophils Percent Auto 55.4 % (45-73); Platelet Count 223 X10*3/uL (160-400); Red Blood Count 5.16 X10*6/uL (4.20-5.50); Red Cell Distribution Width 13.8 % (11.0-16.0); White Blood Count 7.2 X10*3/uL (4.8-10.8)
[2024-03-25 11:08] LABS: Alanine Aminotransferase 27 U/L (0-31); Albumin Level 4.1 g/dL (3.5-5.0); Alkaline Phosphatase 61 U/L (39-117); Anion Gap 14 (12-20); Aspartate Amino Transferase 23 U/L (5-31); Bilirubin Total 0.5 mg/dL (0.0-1.0); Blood Urea Nitrogen 13 mg/dL (9-16); Calcium 9.7 mg/dL (8.4-10.2); Carbon Dioxide 26 mmol/L (22-29); Chloride 104 mmol/L (96-108); Cholesterol 140 mg/dL (<200); Estimated Glomerular Filt Rate > 60; Glucose Fasting 140 mg/dL (60-99); HDL Cholesterol 34 mg/dL (>40); LDL Cholesterol Calculated 90 mg/dL (<100); Sodium 140 mmol/L (135-145); Total Protein 7.5 g/dL (6.5-8.0); Triglycerides 80 mg/dL (<150)
[2024-03-25 11:20] LABS: Estimated Average Glucose 186 mg/dL; Hemoglobin A1c % 8.1 % (<6.0)
[2024-03-25 11:28] LABS: Creatinine Urine 223.19 mg/dL; Microalbum/Creatinine Ratio Ur 20.1 ug/mg cr (<30)
== END 2024-03-25 08:40 | disposition home or self-care (01) ==
LOC: HO.HMGCLDS 08:39
PROVIDERS: PCP Internal Medicine; Visit Provider Internal Medicine
DX: Z00.00 Encounter for general adult medical examination without abnormal findings (principal); E11.9 Type 2 diabetes mellitus without complications; I10 Essential (primary) hypertension; E78.5 Hyperlipidemia, unspecified
CPT/HCPCS: 36415; 80053; 80061; 82043; 82570; 83036; 85025

== ENCOUNTER 2024-03-26 12:36 | Outpatient (AMB) | payer MEDICARE, SELFPAY ==
--- NOTE | 2024-03-26 12:38 | MHC.PC.OV ---
Vital Signs 03/26/24 12:39 Height 5 ft 4.5 in Weight 197 lb BMI 33.3 BP 136/74 Blood Pressure Location Rt brachial Position Sitting Pulse 91 Pulse Source Pulse Oximeter Pulse Oximetry (%) 98 Oxygen Delivery Method Room Air Intake Visit Reasons: F/U morgan from 02/28/24 Intake Note: Pt is here today for a follow up visit on labs. Allergies canagliflozin [Invokana] Allergy (Unknown, Verified 03/26/24 12:41) frequent UTI dulaglutide [Trulicity] Allergy (Unknown, Verified 03/26/24 12:41) vomiting metformin Allergy (Unknown, Verified 03/26/24 12:41) diarrhea atorvastatin [From Lipitor] Adverse Reaction (Intermediate, Verified 03/26/24 12:41) Muscle Pain Olmesartan Medoxomil Allergy (Unknown, Uncoded 03/26/24 12:41) palpitations Medication List - Last Reconciled 03/26/24 by Jessica Vernon MD blood-glucose sensor (Dexcom G6 Sensor device) 1 ea topical .Every 10 days 90 days blood-glucose transmitter 1 transmitter every 3 months. Use as directed. cetirizine (Zyrtec) 10 mg PO DAILY PRN [CPAP Supplies 12 cm H2O,via full mask; DX NORA] cyclosporine 0.05% (Restasis) 1 drp ophthalmic (eye) BID escitalopram oxalate 10 mg PO DAILY esomeprazole magnesium (Nexium 24HR) 20 mg PO DAILY PRN insulin glargine (Lantus Solostar U-100 Insulin) 75 units (0.75 mL) subcut DAILY 90 days insulin lispro (Humalog KwikPen (U-100) Insulin) 1 to 20 unts before each meal based on sliding scale subcut 4 times a day; 90 days irbesartan 75 MG, 1 and 1/2 tabl PO daily; lancets As directed pen needle, diabetic (BD Ultra-Fine Chioma Pen Needle) 1 ea subcut .five times a day 90 days Tobacco use date assessed: 03/26/24 Fall risk assessment: No Falls in past year Last assessed Fall Risk: 03/26/24 Dental Screening Dental Screen Date: 03/26/24 Did you have a dental visit in the last 12 months?: Yes Did you have a dental problem in the last 6 months where you did not have access to dental care?: No Was dental information given to patient?: Patient has dentist HPI F/U morgan from 02/28/24 HPI Details Pt presents for f/u DM 2, HTN. Pt is grieving her nephew who 2 months ago. Patient complains of feeling tired and has not been sleeping well. She has been taking escitalopram but is not interested in increasing the dose. Patient would like to try counseling. [facility] Medical History Knee pain, right Knee pain, bilateral Vitamin D deficiency Cervical disc disease with myelopathy Cataract Rash Tinnitus Obesity Non-toxic multinodular goiter retirement (current) use of insulin NORA (obstructive sleep apnea) Radiculopathy, cervical region Diabetic eye exam History of mammogram Left shoulder tendinitis Anxiety and depression Hyperlipidemia Hypertension Type 2 diabetes mellitus Surgical History History of carpal tunnel surgery Hx of biopsy Hx of cataract surgery S/P MALACHI-BSO H/O colonoscopy Family History Father Heart problem Diabetes Mother Mental health disorder Social History Housing: House Alcohol intake: never Patient Tobacco Use Status: Former Tobacco user e-Cigarette/Vaping Use: Never Used service: No Current occupational status: retired Cognitive needs: No Hearing needs: No Vision needs: Yes Questionnaire PHQ-9 Over the last 2 weeks, how often have you been bothered by any of the following problems? 1. Little interest or pleasure in doing things: several days 2. Feeling down, depressed, or hopeless: several days 3. Trouble falling or staying asleep, or sleeping too much: several days 4. Feeling tired or having little energy: several days 5. Poor appetite or overeating: several days 6. Feeling bad about yourself - or that you are a failure or have let yourself or your family down: several days 7. Trouble concentrating on things, such as reading the newspaper or watching television: not at all 8. Moving or speaking so slowly that other people could have noticed. Or the opposite - being so fidgety or restless that you have been moving around a lot more than usual: not at all 9. Thoughts that you would be better off or of hurting yourself in some way: not at all Total score: 6 Depression Screening Interpretation: Negative Depression Screening Done: Yes 58905 - PHQ-9 Billing: Yes Source: Developed by Drs. Marco Antonio Mary, Dinorah Sherman, Rafael Vera and colleagues, with an educational ignacio from [id number]. Thrive Questionnaire Date Thrive assessed: 12/09/22 I am a: Patient What is your living situation today?: I have a steady place to live Within the past 12 months, did the food you bought not last and you didn't have the money to get more?: Never true Within the past 12 months, did you worry whether your food would run out before you got money to buy more?: Never true Do you have trouble paying for medicines?: No Do you have trouble getting transportation to medical appointments?: No Do you have trouble paying your heating and electricity bill?: No Do you have trouble taking care of your child, family member or friend?: No Do you have trouble with day-to-day activities such as bathing, preparing meals, shopping, managing finances, etc.?: No Are you currently unemployed and looking for a job?: No Are you interested in more education?: No Please select the resources that you would like help with: None Currently or been in a relationship where the following occur: No concerns reported THRIVE Score: 0 AUDIT C Alcohol Use Questionnaire (AUDIT-C) 1. How often do you have a drink containing alcohol?: Monthly or less 2. How many drinks containing alcohol do you have on a typical day when you are drinking?: 1 or 2 3. How often do you have six or more drinks on one occasion?: Never Total Score: 1 DEBBI-7 AMB Questionnaire DEBBI-7 Date DEBBI - 7 assessed: 03/26/24 Feeling nervous, anxious, or on edge: 0 = Not at all Not being able to stop or control worryin = Not at all Worrying too much about different things: 1 = Several days Trouble relaxin = Several days Being so restless that it is hard to sit still: 1 = Several days Becoming easily annoyed or irritable: 1 = Several days Feeling afraid as if something awful might happen: 1 = Several days Total DEBBI-7 score (0-4 normal; 5-9 mild; 10-14 moderate; 15-21 severe): 5 Source: Developed by Drs. Marco Antonio Mary, Dinorah Sherman, Rafael Vera and colleagues, with an educational ignacio from [employer]. DEBBI-7 Assessment Billing DEBBI-7 Assessment Tool: DEBBI-7 Assessment 89905 Review of Systems Const All systems reviewed & are unremarkable except as noted in HPI and below Eyes Reports no additional complaints ENT Reports no additional complaints Card Reports no additional complaints Resp Reports no additional complaints GI Reports no additional complaints Reports no additional complaints Physical exam (Primary Care) Vital Signs: Last Vital Signs Pulse 91 03/26/24 12:39 BP 136/74 03/26/24 12:39 Pulse Ox 98 03/26/24 12:39 Oxygen Delivery Method Room Air 03/26/24 12:39 BMI result Body Mass Index 33.3 Tobacco/Smoking Status: Tobacco use Status Tobacco use date assessed 03/26/24 03/26/24 12:46 Patient Tobacco Use Status Former Tobacco user 03/26/24 12:46 e-Cigarette/Vaping Use Never Used 03/26/24 12:40 PHQ-9: PHQ-9 Score PHQ-9: Total score 6 03/26/24 12:46 Depression Screening Interpretation: Negative Thrive Assessment: Date of Thrive Assessment Date Thrive assessed 12/09/22 03/26/24 12:40 Currently or been in a relationship where the following occur: No concerns reported Const General: no acute distress Neck Neck: Yes supple Resp Effort & Inspection: normal respiratory effort Auscultation: clear to auscultation bilaterally Cardio Rhythm: regular rhythm Heart sounds: S1 normal heart sound present and S2 normal heart sound present GI Inspection: Yes normal to inspection Palpation (GI): Soft to palpation Percussion: Yes normal to percussion Assessment and Plan Assessment & Plan (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 She will continue the same medications is not interested in trying additional medications including GLP 1 agonists. Patient follows up with flatwork assembler every 3 months (3) Diabetic eye exam: Comment: 05/2019 Dr. Lee Code(s): Z01.00 - Encounter for examination of eyes and vision without abnormal findings; E11.9 - Type 2 diabetes mellitus without complications Plan: Follow-up with the Ophthalmology annually (4) Hypertension: Code(s): I10 - Essential (primary) hypertension Plan: Continue irbesartan (5) Anxiety and depression: Code(s): F41.9 - Anxiety disorder, unspecified; F32.9 - Major depressive disorder, single episode, unspecified Plan: Continue escitalopram and referred to counseling Coding Level of Care Code Est Pt Level 4 (22851) Diagnoses retirement (current) use of insulin Z79.4 Type 2 diabetes mellitus E11.9 Diabetic eye exam Z01.00; E11.9 Hypertension I10 Anxiety and depression F41.9; F32.9 Additional Codes DEBBI-7 Assessment Billing - DEBBI-7 Assessment Tool: DEBBI-7 Assessment 74736 ([id number])
[2024-03-26 12:39] VITALS: BP 136/74; PULSE 91; O2SAT 98; BMI 33.3
== END 2024-03-26 13:43 | disposition home or self-care (01) ==
PROVIDERS: PCP Internal Medicine; Visit Provider Internal Medicine
DX: E11.9 Type 2 diabetes mellitus without complications (principal); Z79.4 Long term (current) use of insulin; Z01.00 Encounter for examination of eyes and vision without abnormal findings; I10 Essential (primary) hypertension; F41.9 Anxiety disorder, unspecified; F32.9 Major depressive disorder, single episode, unspecified
CPT/HCPCS: 99214

== ENCOUNTER 2024-09-06 10:53 | Outpatient (REF) | payer MEDICARE, SELFPAY ==
[2024-09-06 13:30] LABS: MANUAL DIFF FLAG NO
[2024-09-06 13:51] LABS: Basophils Percent Auto 0.7 % (0-2); Eosinophils Absolute Auto 0.1 X10*3/uL (0.0-0.4); Eosinophils Percent Auto 2.2 % (0-4); Hematocrit 42.6 % (37.0-47.0); Hemoglobin 13.7 g/dl (12.0-16.0); Imm Gran Abs Auto 0.03 X10*3/uL (0.00-0.03); Imm Gran Pct Auto 0.5 % (0.0-0.4); Lymphocytes Absolute Auto 1.7 X10*3/uL (1.2-4.9); Lymphocytes Percent Auto 28.4 % (20-40); Mean Corpuscular HGB Conc 32.2 g/dl (31.0-35.0); Mean Corpuscular Hemoglobin 25.7 pg (27.0-33.0); Mean Corpuscular Volume 79.8 fL (80.0-98.0); Monocytes Absolute Auto 0.4 X10*3/uL (0.1-1.2); Monocytes Percent Auto 7.6 % (2-11); Neutrophils Absolute Auto 3.5 x10*3/uL (2.0-8.3); Neutrophils Percent Auto 60.6 % (45-73); Platelet Count 228 X10*3/uL (160-400); Red Blood Count 5.34 X10*6/uL (4.20-5.50); Red Cell Distribution Width 13.9 % (11.0-16.0); White Blood Count 5.8 X10*3/uL (4.8-10.8)
[2024-09-06 14:16] LABS: Alanine Aminotransferase 35 U/L (0-31); Albumin Level 4.1 g/dL (3.5-5.0); Alkaline Phosphatase 67 U/L (39-117); Anion Gap 12 (12-20); Aspartate Amino Transferase 31 U/L (5-31); Bilirubin Total 0.6 mg/dL (0.0-1.0); Blood Urea Nitrogen 12 mg/dL (9-16); Calcium 9.5 mg/dL (8.4-10.2); Carbon Dioxide 26 mmol/L (22-29); Chloride 106 mmol/L (96-108); Cholesterol 148 mg/dL (<200); Estimated Glomerular Filt Rate > 60; Glucose Fasting 176 mg/dL (60-99); HDL Cholesterol 33 mg/dL (>40); LDL Cholesterol Calculated 102 mg/dL (<100); Potassium 4.4 mmol/L (3.3-5.1); Sodium 140 mmol/L (135-145); Total Protein 7.8 g/dL (6.5-8.0); Triglycerides 65 mg/dL (<150)
[2024-09-06 14:20] LABS: TSH reflex Free T4 0.45 uIU/mL (0.32-4.0)
[2024-09-06 14:30] LABS: Estimated Average Glucose 192 mg/dL; Hemoglobin A1c % 8.3 % (<6.0); Total Hemoglobin (HGBA1C) 3537.2628 umol/L
[2024-09-06 14:35] LABS: Creatinine Urine 197.79 mg/dL
== END 2024-09-06 10:54 | disposition home or self-care (01) ==
LOC: HO.HMGCLDS 10:53
PROVIDERS: PCP Internal Medicine; Visit Provider Internal Medicine
DX: E11.9 Type 2 diabetes mellitus without complications (principal); E78.5 Hyperlipidemia, unspecified; E55.9 Vitamin D deficiency, unspecified
CPT/HCPCS: 36415; 80053; 80061; 82043; 82306; 82570; 83036; 84443; 85025

== ENCOUNTER 2024-09-10 13:24 | Outpatient (AMB) | payer MEDICARE, SELFPAY ==
[2024-09-10 13:42] VITALS: BP 120/70; PULSE 86; RESP 20; TEMP 36.9; O2SAT 97; BMI 33.8
--- NOTE | 2024-09-10 13:42 | MHC.PC.OV ---
Vital Signs 09/10/24 13:42 Height 5 ft 4.5 in Weight 200 lb BMI 33.8 BP 120/70 Blood Pressure Location Rt brachial Position Sitting Respiration 20 Pulse 86 Pulse Source Pulse Oximeter Temp 98.4 F Temp Source Oral Pulse Oximetry (%) 97 Oxygen Delivery Method Room Air Intake Visit Reasons: PE Intake Note: Pt is here today for PE. Allergies canagliflozin [Invokana] Allergy (Unknown, Verified 09/10/24 13:50) frequent UTI dulaglutide [Trulicity] Allergy (Unknown, Verified 09/10/24 13:50) vomiting metformin Allergy (Unknown, Verified 09/10/24 13:50) diarrhea atorvastatin [From Lipitor] Adverse Reaction (Intermediate, Verified 09/10/24 13:50) Muscle Pain Olmesartan Medoxomil Allergy (Unknown, Uncoded 09/10/24 13:50) palpitations Medication List - Last Reconciled 09/10/24 by Jessica Vernon MD blood-glucose sensor (Dexcom G6 Sensor device) 1 ea topical .Every 10 days 90 days blood-glucose transmitter 1 transmitter every 3 months. Use as directed. cetirizine (Zyrtec) 10 mg PO DAILY PRN [CPAP Supplies 12 cm H2O,via full mask; DX NORA] cyclosporine 0.05% (Restasis) 1 drp ophthalmic (eye) BID escitalopram oxalate 10 mg PO DAILY esomeprazole magnesium (Nexium 24HR) 20 mg PO DAILY PRN insulin glargine (Lantus Solostar U-100 Insulin) 75 units (0.75 mL) subcut DAILY 90 days insulin lispro (Humalog KwikPen (U-100) Insulin) 1 to 20 unts before each meal based on sliding scale subcut 4 times a day; 90 days irbesartan 75 MG, 1 and 1/2 tabl PO daily; lancets As directed neomycin 0.5% ea topical .topical once a day pen needle, diabetic (BD Ultra-Fine Chioma Pen Needle) 1 ea subcut .five times a day 90 days Tobacco use date assessed: 09/10/24 Fall risk assessment: No Falls in past year Last assessed Fall Risk: 09/10/24 Dental Screening Dental Screen Date: 09/10/24 Did you have a dental visit in the last 12 months?: Yes Did you have a dental problem in the last 6 months where you did not have access to dental care?: No Was dental information given to patient?: Patient has dentist HPI PE HPI Details Pt presents for PE. [facility] Medical History (Updated 09/10/24 @ 14:36 by Jessica Vernon MD) Knee pain, right Knee pain, bilateral Vitamin D deficiency Cervical disc disease with myelopathy Cataract Rash Tinnitus Obesity Non-toxic multinodular goiter custodial (current) use of insulin NORA (obstructive sleep apnea) Radiculopathy, cervical region Diabetic eye exam History of mammogram Left shoulder tendinitis Anxiety and depression Hyperlipidemia Hypertension Type 2 diabetes mellitus Surgical History History of carpal tunnel surgery Hx of biopsy Hx of cataract surgery S/P MALACHI-BSO H/O colonoscopy Family History Father Heart problem Diabetes Mother Mental health disorder Social History Housing: House Alcohol intake: never Patient Tobacco Use Status: Former Tobacco user e-Cigarette/Vaping Use: Never Used service: No Current occupational status: retired Cognitive needs: No Hearing needs: No Vision needs: Yes Questionnaire PHQ-9 Over the last 2 weeks, how often have you been bothered by any of the following problems? 1. Little interest or pleasure in doing things: several days 2. Feeling down, depressed, or hopeless: not at all 3. Trouble falling or staying asleep, or sleeping too much: not at all 4. Feeling tired or having little energy: not at all 5. Poor appetite or overeating: not at all 6. Feeling bad about yourself - or that you are a failure or have let yourself or your family down: not at all 7. Trouble concentrating on things, such as reading the newspaper or watching television: not at all 8. Moving or speaking so slowly that other people could have noticed. Or the opposite - being so fidgety or restless that you have been moving around a lot more than usual: not at all 9. Thoughts that you would be better off or of hurting yourself in some way: not at all Total score: 1 Depression Screening Interpretation: Negative Depression Screening Done: Yes 52610 - PHQ-9 Billing: Yes Source: Developed by Drs. Marco Antonio Mary, Dinorah Sherman, Rafael Vera and colleagues, with an educational ignacio from [employer]. Thrive Questionnaire Date Thrive assessed: 09/10/24 I am a: Patient What is your living situation today?: I have a steady place to live Within the past 12 months, did the food you bought not last and you didn't have the money to get more?: Never true Within the past 12 months, did you worry whether your food would run out before you got money to buy more?: Never true Do you have trouble paying for medicines?: No Do you have trouble getting transportation to medical appointments?: No Do you have trouble paying your heating and electricity bill?: No Do you have trouble taking care of your child, family member or friend?: No Do you have trouble with day-to-day activities such as bathing, preparing meals, shopping, managing finances, etc.?: No Are you currently unemployed and looking for a job?: No Are you interested in more education?: No Please select the resources that you would like help with: None Currently or been in a relationship where the following occur: No concerns reported THRIVE Score: 0 AUDIT C Alcohol Use Questionnaire (AUDIT-C) 1. How often do you have a drink containing alcohol?: Monthly or less 2. How many drinks containing alcohol do you have on a typical day when you are drinking?: 1 or 2 3. How often do you have six or more drinks on one occasion?: Never Total Score: 1 DEBBI-7 AMB Questionnaire DEBBI-7 Date DEBBI - 7 assessed: 09/10/24 Feeling nervous, anxious, or on edge: 0 = Not at all Not being able to stop or control worryin = Not at all Worrying too much about different things: 1 = Several days Trouble relaxin = Several days Being so restless that it is hard to sit still: 0 = Not at all Becoming easily annoyed or irritable: 0 = Not at all Feeling afraid as if something awful might happen: 0 = Not at all Total DEBBI-7 score (0-4 normal; 5-9 mild; 10-14 moderate; 15-21 severe): 2 Source: Developed by Dinorah Ford [address], Rafael Vera and colleagues, with an educational ignacio from [employer]. DEBBI-7 Assessment Billing DEBBI-7 Assessment Tool: DEBBI-7 Assessment 17842 Review of Systems Const All systems reviewed & are unremarkable except as noted in HPI and below Eyes Reports no additional complaints ENT Reports no additional complaints Card Reports no additional complaints Resp Reports no additional complaints GI Reports no additional complaints Reports no additional complaints Musc Reports no additional complaints Physical exam (Primary Care) Vital Signs: Last Vital Signs Temp 98.4 F 09/10/24 13:42 Pulse 86 09/10/24 13:42 Resp 20 09/10/24 13:42 BP 120/70 09/10/24 13:42 Pulse Ox 97 09/10/24 13:42 Oxygen Delivery Method Room Air 09/10/24 13:42 BMI result Body Mass Index 33.8 Tobacco/Smoking Status: Tobacco use Status Tobacco use date assessed 09/10/24 09/10/24 13:45 Patient Tobacco Use Status Former Tobacco user 09/10/24 13:45 e-Cigarette/Vaping Use Never Used 09/10/24 13:45 PHQ-9: PHQ-9 Score PHQ-9: Total score 1 09/10/24 13:56 Depression Screening Interpretation: Negative Thrive Assessment: Date of Thrive Assessment Date Thrive assessed 09/10/24 09/10/24 13:56 Currently or been in a relationship where the following occur: No concerns reported Const General: no acute distress HENMT Head: Yes normal to inspection Ears: hearing grossly normal bilaterally Face and sinus: Yes normal facial exam Throat: Yes posterior oropharynx normal Eyes General: appearance normal, both eyes and all related structures Neck Neck: Yes no lymphadenopathy and Yes supple Resp Effort & Inspection: normal respiratory effort Auscultation: clear to auscultation bilaterally Cardio Rhythm: regular rhythm Heart sounds: S1 normal heart sound present and S2 normal heart sound present GI Inspection: Yes normal to inspection Palpation (GI): Soft to palpation Percussion: Yes normal to percussion Auscultation: normal bowel sounds Coding Level of Care Code Est Pt Prev Care >65y(52581) Diagnoses Annual physical exam Z00.00 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 Z79.4 NORA (obstructive sleep apnea) G47.33 Type 2 diabetes mellitus E11.9 Hypertension I10 Hyperlipidemia E78.5 Anxiety and depression F41.9; F32.9 Additional Codes DEBBI-7 Assessment Billing - DEBBI-7 Assessment Tool: DEBBI-7 Assessment 93652 ([id number]) PHQ-9 - 81257 - PHQ-9 Billing: Yes ([id number]) Assessment & Plan Assessment & Plan (1) Annual physical exam: Code(s): Z00.00 - Encounter for general adult medical examination without abnormal findings Category: Medical Plan: well balanced diet, regular exercise discussed, mammogram, (2) custodial (current) use of insulin: Code(s): Z79.4 - 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 Category: Medical Plan: Follow-up with endocrinology (3) NORA (obstructive sleep apnea): Code(s): G47.33 - Obstructive sleep apnea (adult) (pediatric) Category: Medical Plan: cont Cpap (4) Type 2 diabetes mellitus: Comment: f/u Endo Dr. Abbott Code(s): E11.9 - Type 2 diabetes mellitus without complications Category: Medical Plan: A1C 8.3, ADA diet, increase exercise, weight loss discussed, f/u with Endo (5) Hypertension: Code(s): I10 - Essential (primary) hypertension Category: Medical Plan: Continue current medication (6) Hyperlipidemia: Comment: intolerant to statins , Lipitor Code(s): E78.5 - Hyperlipidemia, unspecified Category: Medical Plan: Continue low-cholesterol diet (7) Anxiety and depression: Code(s): F41.9 - Anxiety disorder, unspecified; F32.9 - Major depressive disorder, single episode, unspecified Category: Medical Plan: Continue escitalopram , patient will get established with the therapy Orders: Orders Comprehensive [facility]. Panel Fast 1 Year E11.9 - Type 2 diabetes mellitus without complications, E78.5 - Hyperlipidemia, unspecified, I10 - Essential (primary) hypertension, Z00.00 - Encounter for general adult medical examination without abnormal findings Lipid Panel 1 Year E11.9 - Type 2 diabetes mellitus without complications, E78.5 - Hyperlipidemia, unspecified, I10 - Essential (primary) hypertension, Z00.00 - Encounter for general adult medical examination without abnormal findings Complete Blood Count Auto Diff 1 Year E11.9 - Type 2 diabetes mellitus without complications, E78.5 - Hyperlipidemia, unspecified, I10 - Essential (primary) hypertension, Z00.00 - Encounter for general adult medical examination without abnormal findings Hemoglobin A1c 1 Year E11.9 - Type 2 diabetes mellitus without complications, E78.5 - Hyperlipidemia, unspecified, I10 - Essential (primary) hypertension, Z00.00 - Encounter for general adult medical examination without abnormal findings Microalbumin, Random (w Creat) 1 Year E11.9 - Type 2 diabetes mellitus without complications, E78.5 - Hyperlipidemia, unspecified, I10 - Essential (primary) hypertension, Z00.00 - Encounter for general adult medical examination without abnormal findings Vitamin D 25-OH Total 1 Year E11.9 - Type 2 diabetes mellitus without complications, E78.5 - Hyperlipidemia, unspecified, I10 - Essential (primary) hypertension, Z00.00 - Encounter for general adult medical examination without abnormal findings Medications: Refilled escitalopram oxalate 10 mg PO DAILY 90 tabs 3RF irbesartan 75 MG, 1 and 1/2 tabl PO daily; 135 tabs 3RF
== END 2024-09-10 14:45 | disposition home or self-care (01) ==
PROVIDERS: PCP Internal Medicine; Visit Provider Internal Medicine
DX: Z00.00 Encounter for general adult medical examination without abnormal findings (principal); Z79.4 Long term (current) use of insulin; G47.33 Obstructive sleep apnea (adult) (pediatric); E11.9 Type 2 diabetes mellitus without complications; I10 Essential (primary) hypertension; E78.5 Hyperlipidemia, unspecified; F41.9 Anxiety disorder, unspecified; F32.9 Major depressive disorder, single episode, unspecified

== ENCOUNTER → 2024-09-10 13:24 | Outpatient (BNVA) | payer MEDICARE, SELFPAY | PROVIDERS: PCP Internal Medicine; Visit Provider Internal Medicine | DX: Z00.00 Encounter for general adult medical examination without abnormal findings (principal); G47.33 Obstructive sleep apnea (adult) (pediatric); E11.9 Type 2 diabetes mellitus without complications; E78.5 Hyperlipidemia, unspecified; I10 Essential (primary) hypertension; F41.9 Anxiety disorder, unspecified; F32.9 Major depressive disorder, single episode, unspecified; Z79.4 Long term (current) use of insulin | CPT/HCPCS: 96127; 99397 ==

== ENCOUNTER 2024-09-25 13:06 | Outpatient (AMB) | payer MEDICARE, SELFPAY ==
--- NOTE | 2024-09-25 13:42 | A.OFFPC_ITS ---
Vital Signs 09/25/24 13:45 Height 5 ft 4.5 in Weight 195 lb BMI 33.0 BP 118/64 Blood Pressure Location Rt brachial Position Sitting Respiration 18 Pulse 81 Pulse Source Pulse Oximeter Temp 98.6 F Temp Source Oral Pulse Oximetry (%) 97 Oxygen Delivery Method Room Air Intake Visit Reasons: cough, UTI? Intake Note: Pt is here today for a sick visit. Pt c/o cough congestion, low grade fever, chest tightness since Monday. Allergies canagliflozin [Invokana] Allergy (Unknown, Verified 09/25/24 13:53) frequent UTI dulaglutide [Trulicity] Allergy (Unknown, Verified 09/25/24 13:53) vomiting metformin Allergy (Unknown, Verified 09/25/24 13:53) diarrhea atorvastatin [From Lipitor] Adverse Reaction (Intermediate, Verified 09/25/24 13:53) Muscle Pain Olmesartan Medoxomil Allergy (Unknown, Uncoded 09/25/24 13:53) palpitations Medication List - Last Reconciled 09/25/24 by Jessica Vernon MD blood-glucose sensor (Dexcom G6 Sensor device) 1 ea topical .Every 10 days 90 days blood-glucose transmitter 1 transmitter every 3 months. Use as directed. cetirizine (Zyrtec) 10 mg PO DAILY PRN [CPAP Supplies 12 cm H2O,via full mask; DX NORA] cyclosporine 0.05% (Restasis) 1 drp ophthalmic (eye) BID doxycycline hyclate 100 mg PO BID escitalopram oxalate 10 mg PO DAILY esomeprazole magnesium (Nexium 24HR) 20 mg PO DAILY PRN insulin glargine (Basaglar KwikPen U-100 Insulin) subcut insulin lispro (Humalog KwikPen (U-100) Insulin) 1 to 20 unts before each meal based on sliding scale subcut 4 times a day; 90 days irbesartan 75 MG, 1 and 1/2 tabl PO daily; lancets As directed neomycin 0.5% ea topical .topical once a day nitrofurantoin macrocrystal 100 mg PO BID 5 days pen needle, diabetic (BD Ultra-Fine Chioma Pen Needle) 1 ea subcut .five times a day 90 days Tobacco use date assessed: 09/25/24 Dental Screening Dental Screen Date: 09/10/24 HPI cough, UTI? HPI Details Pt c/o productive cough, yellow sputum, chills body ache sinus congestion and pain chest tightness for for 10 days. Patient has started taking Macrobid for presumed UTI 3 days ago and denies dysuria abdominal pain nausea or vomiting hematuria PFSH Medical History (Updated 09/25/24 @ 14:20 by Jessica Vernon MD) Knee pain, right Knee pain, bilateral Vitamin D deficiency Cervical disc disease with myelopathy Cataract Rash Tinnitus Obesity Non-toxic multinodular goiter retirement (current) use of insulin NORA (obstructive sleep apnea) Radiculopathy, cervical region Diabetic eye exam History of mammogram Left shoulder tendinitis Anxiety and depression Hyperlipidemia Hypertension Type 2 diabetes mellitus Surgical History History of carpal tunnel surgery Hx of biopsy Hx of cataract surgery S/P MALACHI-BSO H/O colonoscopy Family History (Updated 09/16/24 @ 08:27 by Kaylan Silva [facility]) Father Heart problem Diabetes Mother Hypertension Coronary heart disease Emphysema of lung Diabetes Social History Housing: House Alcohol intake: never Patient Tobacco Use Status: Former Tobacco user e-Cigarette/Vaping Use: Never Used service: No Current occupational status: retired Cognitive needs: No Hearing needs: No Vision needs: Yes Questionnaire Thrive Questionnaire Date Thrive assessed: 09/10/24 DEBBI-7 AMB Questionnaire DEBBI-7 Date DEBBI - 7 assessed: 09/10/24 Source: Developed by Drs. Marco Antonio Mary, Dinorah Sherman, Rafael Vera and colleagues, with an educational ignacio from [employer]. Review of Systems Const All systems reviewed & are unremarkable except as noted in HPI and below Eyes Reports no additional complaints ENT Reports no additional complaints Card Reports no additional complaints Resp Reports no additional complaints GI Reports no additional complaints Reports no additional complaints Physical exam (Primary Care) Vital Signs: Last Vital Signs Temp 98.6 F 09/25/24 13:45 Pulse 81 09/25/24 13:45 Resp 18 09/25/24 13:45 BP 118/64 09/25/24 13:45 Pulse Ox 97 09/25/24 13:45 Oxygen Delivery Method Room Air 09/25/24 13:45 BMI result Body Mass Index 33.0 Tobacco/Smoking Status: Tobacco use Status Tobacco use date assessed 09/25/24 09/25/24 13:56 Patient Tobacco Use Status Former Tobacco user 09/25/24 13:43 e-Cigarette/Vaping Use Never Used 09/25/24 13:43 Thrive Assessment: Date of Thrive Assessment Date Thrive assessed 09/10/24 09/25/24 13:43 Const General: no acute distress HENMT Ears: TM's normal bilaterally Throat: Yes posterior oropharynx abnormal (erythema) and Yes postnasal drainage Eyes General: appearance normal, both eyes and all related structures Neck Neck: Yes supple and Yes lymphadenopathy (Submandibular bilaterally) Resp Effort & Inspection: normal respiratory effort Auscultation: rhonchi and diminished lung sounds Cardio Rhythm: regular rhythm Heart sounds: S1 normal heart sound present and S2 normal heart sound present GI Inspection: Yes normal to inspection Palpation (GI): Soft to palpation Percussion: Yes normal to percussion Auscultation: normal bowel sounds Coding Level of Care Code Est Pt Level 3 (81683) Diagnoses URI (upper respiratory infection) J06.9 Hypertension I10 Type 2 diabetes mellitus E11.9 Assessment & Plan Assessment & Plan (1) URI (upper respiratory infection): Code(s): J06.9 - Acute upper respiratory infection, unspecified Category: Medical Plan: Doxycycline 100 mg b.i.d. for 10 days is prescribed and supportive care discussed with the patient (2) Hypertension: Code(s): I10 - Essential (primary) hypertension Category: Medical Plan: Continue current medications (3) Type 2 diabetes mellitus: Comment: f/u Madhavi Abbott Code(s): E11.9 - Type 2 diabetes mellitus without complications Category: Medical Plan: Continue current medications Medications: New doxycycline hyclate 100 mg PO BID 20 tabs 0RF
[2024-09-25 13:45] VITALS: BP 118/64; PULSE 81; RESP 18; TEMP 37; O2SAT 97; BMI 33.0
== END 2024-09-25 14:07 | disposition home or self-care (01) ==
LOC: HO.HMCC 13:06
PROVIDERS: PCP Internal Medicine; Visit Provider Internal Medicine
DX: J06.9 Acute upper respiratory infection, unspecified (principal); I10 Essential (primary) hypertension; E11.9 Type 2 diabetes mellitus without complications

== ENCOUNTER → 2024-09-25 13:06 | Outpatient (BNVA) | payer MEDICARE, SELFPAY | PROVIDERS: PCP Internal Medicine; Visit Provider Internal Medicine | DX: J06.9 Acute upper respiratory infection, unspecified (principal); I10 Essential (primary) hypertension; E11.9 Type 2 diabetes mellitus without complications | CPT/HCPCS: 99212 ==

== ENCOUNTER 2024-10-31 09:38 | Outpatient (REF) | payer MEDICARE, SELFPAY ==
[2024-10-31 13:05] LABS: MANUAL DIFF FLAG NO
[2024-10-31 13:26] LABS: Basophils Absolute Auto 0.1 X10*3/uL (0.0-0.2); Basophils Percent Auto 1.2 % (0-2); Eosinophils Absolute Auto 0.1 X10*3/uL (0.0-0.4); Eosinophils Percent Auto 1.9 % (0-4); Hematocrit 42.2 % (37.0-47.0); Hemoglobin 13.9 g/dl (12.0-16.0); Imm Gran Abs Auto 0.01 X10*3/uL (0.00-0.03); Imm Gran Pct Auto 0.2 % (0.0-0.4); Lymphocytes Absolute Auto 1.6 X10*3/uL (1.2-4.9); Lymphocytes Percent Auto 27.9 % (20-40); Mean Corpuscular HGB Conc 32.9 g/dl (31.0-35.0); Mean Corpuscular Hemoglobin 26.2 pg (27.0-33.0); Mean Corpuscular Volume 79.6 fL (80.0-98.0); Mean Platelet Volume 10.5 fL (9.4-12.3); Monocytes Absolute Auto 0.5 X10*3/uL (0.1-1.2); Monocytes Percent Auto 9.2 % (2-11); Neutrophils Absolute Auto 3.5 x10*3/uL (2.0-8.3); Neutrophils Percent Auto 59.6 % (45-73); Platelet Count 214 X10*3/uL (160-400); Red Cell Distribution Width 13.8 % (11.0-16.0); White Blood Count 5.9 X10*3/uL (4.8-10.8)
[2024-10-31 13:50] LABS: B Type Natriuretic Peptide 14 pg/mL (<100)
[2024-10-31 13:51] LABS: Anion Gap 12 (12-20); Blood Urea Nitrogen 12 mg/dL (9-16); Calcium 9.5 mg/dL (8.4-10.2); Carbon Dioxide 26 mmol/L (22-29); Chloride 107 mmol/L (96-108); Estimated Glomerular Filt Rate > 60; Glucose Random 154 mg/dL (60-115); Potassium 4.1 mmol/L (3.3-5.1); Sodium 141 mmol/L (135-145)
== END 2024-10-31 09:39 | disposition home or self-care (01) ==
LOC: HO.HMGCLDS 09:38
PROVIDERS: PCP Internal Medicine; Visit Provider Internal Medicine
DX: R06.09 Other forms of dyspnea (principal); I20.9 Angina pectoris, unspecified; J45.909 Unspecified asthma, uncomplicated
CPT/HCPCS: 36415; 80048; 83880; 85025; 96127; 99212

== ENCOUNTER 2024-10-31 09:38 | Outpatient (AMB) | payer MEDICARE, SELFPAY ==
[2024-10-31 09:44] VITALS: BP 122/74; PULSE 81; RESP 20; TEMP 36.8; O2SAT 97; BMI 34.1
--- NOTE | 2024-10-31 09:44 | MHC.PC.OV ---
Vital Signs 10/31/24 09:44 Height 5 ft 4.5 in Weight 202 lb BMI 34.1 BP 122/74 Blood Pressure Location Lt brachial Position Sitting Respiration 20 Pulse 81 Pulse Source Pulse Oximeter Temp 98.2 F Temp Source Oral Pulse Oximetry (%) 97 Intake Visit Reasons: follow up due to x-ray concerns from urgent care Intake Note: Pt is here today for a follow up visit after Urgent Care visit. Allergies canagliflozin [Invokana] Allergy (Unknown, Verified 10/31/24 09:45) frequent UTI dulaglutide [Trulicity] Allergy (Unknown, Verified 10/31/24 09:45) vomiting metformin Allergy (Unknown, Verified 10/31/24 09:45) diarrhea atorvastatin [From Lipitor] Adverse Reaction (Intermediate, Verified 10/31/24 09:45) Muscle Pain Olmesartan Medoxomil Allergy (Unknown, Uncoded 10/31/24 09:45) palpitations Medication List - Last Reconciled 10/31/24 by Jessica Vernon MD albuterol sulfate 90 mcg/actuation 2 puffs inhalation Q6H PRN blood-glucose sensor (Dexcom G6 Sensor device) 1 ea topical .Every 10 days 90 days blood-glucose transmitter 1 transmitter every 3 months. Use as directed. cetirizine (Zyrtec) 10 mg PO DAILY PRN [CPAP Supplies 12 cm H2O,via full mask; DX NORA] cyclosporine 0.05% (Restasis) 1 drp ophthalmic (eye) BID escitalopram oxalate 10 mg PO DAILY esomeprazole magnesium (Nexium 24HR) 20 mg PO DAILY PRN insulin glargine (Basaglar KwikPen U-100 Insulin) subcut insulin lispro (Humalog KwikPen (U-100) Insulin) 1 to 20 unts before each meal based on sliding scale subcut 4 times a day; 90 days irbesartan 75 MG, 1 and 1/2 tabl PO daily; lancets As directed neomycin 0.5% ea topical .topical once a day pen needle, diabetic (BD Ultra-Fine Chioma Pen Needle) 1 ea subcut .five times a day 90 days Tobacco use date assessed: 10/31/24 Fall risk assessment: No Falls in past year Last assessed Fall Risk: 10/31/24 Dental Screening Dental Screen Date: 10/31/24 Did you have a dental visit in the last 12 months?: Yes Did you have a dental problem in the last 6 months where you did not have access to dental care?: No Was dental information given to patient?: Patient has dentist HPI follow up due to x-ray concerns from urgent care HPI Details Pt presents complaining of persistent cough with small amount of white sputum, chest tightness and intermittent wheezing relieved with albuterol for over 1 month. Patient took a course of doxycycline a month ago. She denies fever night sweats but reports feeling tired and having throat tightness when walking relieved with rest. Patient denies palpitations PND orthopnea [facility] Medical History (Updated 10/31/24 @ 10:53 by Jessica Vernon MD) Knee pain, right Knee pain, bilateral Vitamin D deficiency Cervical disc disease with myelopathy Cataract Rash Tinnitus Obesity Non-toxic multinodular goiter care home (current) use of insulin NORA (obstructive sleep apnea) Radiculopathy, cervical region Diabetic eye exam History of mammogram Left shoulder tendinitis Anxiety and depression Hyperlipidemia Hypertension Type 2 diabetes mellitus Surgical History History of carpal tunnel surgery Hx of biopsy Hx of cataract surgery S/P MALACHI-BSO H/O colonoscopy Family History (Updated 09/16/24 @ 08:27 by Kaylan Silva [facility]) Father Heart problem Diabetes Mother Hypertension Coronary heart disease Emphysema of lung Diabetes Social History Housing: House Alcohol intake: never Patient Tobacco Use Status: Former Tobacco user e-Cigarette/Vaping Use: Never Used service: No Current occupational status: retired Cognitive needs: No Hearing needs: No Vision needs: Yes Questionnaire PHQ-9 Over the last 2 weeks, how often have you been bothered by any of the following problems? 1. Little interest or pleasure in doing things: not at all 2. Feeling down, depressed, or hopeless: several days 3. Trouble falling or staying asleep, or sleeping too much: not at all 4. Feeling tired or having little energy: not at all 5. Poor appetite or overeating: not at all 6. Feeling bad about yourself - or that you are a failure or have let yourself or your family down: not at all 7. Trouble concentrating on things, such as reading the newspaper or watching television: not at all 8. Moving or speaking so slowly that other people could have noticed. Or the opposite - being so fidgety or restless that you have been moving around a lot more than usual: not at all 9. Thoughts that you would be better off or of hurting yourself in some way: not at all Total score: 1 Depression Screening Interpretation: Negative Depression Screening Done: Yes 87783 - PHQ-9 Billing: Yes Source: Developed by Drs. Marco Antonio Mary, Dinorah Sherman, Rafael Vera and colleagues, with an educational ignacio from [employer]. Thrive Questionnaire Date Thrive assessed: 10/31/24 I am a: Patient What is your living situation today?: I have a steady place to live Within the past 12 months, did the food you bought not last and you didn't have the money to get more?: Never true Within the past 12 months, did you worry whether your food would run out before you got money to buy more?: Never true Do you have trouble paying for medicines?: No Do you have trouble getting transportation to medical appointments?: No Do you have trouble paying your heating and electricity bill?: No Do you have trouble taking care of your child, family member or friend?: No Do you have trouble with day-to-day activities such as bathing, preparing meals, shopping, managing finances, etc.?: No Are you currently unemployed and looking for a job?: No Are you interested in more education?: No Please select the resources that you would like help with: None Currently or been in a relationship where the following occur: No concerns reported THRIVE Score: 0 DEBBI-7 AMB Questionnaire DEBBI-7 Date DEBBI - 7 assessed: 10/31/24 Feeling nervous, anxious, or on edge: 0 = Not at all Not being able to stop or control worryin = Not at all Worrying too much about different things: 0 = Not at all Trouble relaxin = Not at all Being so restless that it is hard to sit still: 0 = Not at all Becoming easily annoyed or irritable: 0 = Not at all Feeling afraid as if something awful might happen: 0 = Not at all Total DEBBI-7 score (0-4 normal; 5-9 mild; 10-14 moderate; 15-21 severe): 0 Source: Developed by Drs. Marco Antonio Mary, Dinorah Sherman, Rafael Vera and colleagues, with an educational ignacio from [employer]. DEBBI-7 Assessment Billing DEBBI-7 Assessment Tool: DEBBI-7 Assessment 94273 Review of Systems Const All systems reviewed & are unremarkable except as noted in HPI and below Eyes Reports no additional complaints ENT Reports no additional complaints Card Reports no additional complaints Resp Reports no additional complaints GI Reports no additional complaints Reports no additional complaints Physical exam (Primary Care) Vital Signs: Last Vital Signs Temp 98.2 F 10/31/24 09:44 Pulse 81 10/31/24 09:44 Resp 20 10/31/24 09:44 BP 122/74 10/31/24 09:44 Pulse Ox 97 10/31/24 09:44 BMI result Body Mass Index 34.1 Tobacco/Smoking Status: Tobacco use Status Tobacco use date assessed 10/31/24 10/31/24 09:45 Patient Tobacco Use Status Former Tobacco user 10/31/24 09:44 e-Cigarette/Vaping Use Never Used 10/31/24 09:44 PHQ-9: PHQ-9 Score PHQ-9: Total score 1 10/31/24 10:01 Depression Screening Interpretation: Negative Thrive Assessment: Date of Thrive Assessment Date Thrive assessed 10/31/24 10/31/24 10:01 Currently or been in a relationship where the following occur: No concerns reported Const General: no acute distress HENMT Head: Yes normal to inspection Face and sinus: Yes normal facial exam Eyes General: appearance normal, both eyes and all related structures Resp Effort & Inspection: normal respiratory effort Auscultation: wheezes and diminished lung sounds Cardio Rhythm: regular rhythm Heart sounds: S1 normal heart sound present and S2 normal heart sound present Coding Level of Care Code Est Pt Level 4 (78182) Diagnoses ELI (dyspnea on exertion) R06.09 Angina pectoris syndrome I20.9 Reactive airway disease J45.909 Additional Codes DEBBI-7 Assessment Billing - DEBBI-7 Assessment Tool: DEBBI-7 Assessment 70961 ([id number]) PHQ-9 - 60345 - PHQ-9 Billing: Yes ([id number]) Assessment & Plan Assessment & Plan (1) ELI (dyspnea on exertion): Code(s): R06.09 - Other forms of dyspnea Category: Medical Plan: Obtain echocardiogram to evaluate for ejection fraction, segmental wall motion abnormalities, check BNP today. (2) Angina pectoris syndrome: Code(s): I20.9 - Angina pectoris, unspecified Category: Medical Plan: EKG showed normal sinus rhythm no ST-T changes. Due to multiple risk factors for angina patient will be referred for nuclear stress test (3) Reactive airway disease: Code(s): J45.909 - Unspecified asthma, uncomplicated Category: Medical Plan: Start Breo Ellipta 100 mcg daily continue albuterol as needed Orders: Orders CA echo transthoracic complete Today I20.9 - Angina pectoris, unspecified, R06.09 - Other forms of dyspnea CA stress test Today I20.9 - Angina pectoris, unspecified, R06.09 - Other forms of dyspnea B Type Natriuretic Peptide Today I20.9 - Angina pectoris, unspecified, R06.09 - Other forms of dyspnea Basic Metabolic Panel Today I20.9 - Angina pectoris, unspecified, R06.09 - Other forms of dyspnea Complete Blood Count Auto Diff Today I20.9 - Angina pectoris, unspecified, R06.09 - Other forms of dyspnea NM cardiolite stress test Today I20.9 - Angina pectoris, unspecified Medications: New Breo Ellipta 100-25 mcg/dose (fluticasone furoate-vilanterol) 1 inh inhalation DAILY 60 ea 0RF NS albuterol sulfate 90 mcg/actuation 2 puffs inhalation Q6H PRN 8.5 grams 1RF bronchospasm
== END 2024-10-31 10:41 | disposition home or self-care (01) ==
LOC: HO.HMCC 09:39
PROVIDERS: PCP Internal Medicine; Visit Provider Internal Medicine
DX: R06.09 Other forms of dyspnea (principal); I20.9 Angina pectoris, unspecified; J45.909 Unspecified asthma, uncomplicated

== ENCOUNTER → 2024-11-06 10:58 | Outpatient (REF) | payer MEDICARE, SELFPAY ==
--- NOTE | 2024-11-06 11:02 | CA_ITS ---
Transthoracic Echocardiogram Patient (Last, First, Middle): Familia Howard H Gender: Female Date of : 1955 Age: 69 Procedure Date: 11/06/2024 Procedure Type: Transthoracic Echocardiogram Location: OP Height: 162.56 cm Weight: 91.63 kg BSA: 1.96 m2 Heart Rate: bpm BP: 122 / 74 mmHg Ancillary Services Manager: JORDAN Referring MD: Jessica Vernon MD Symptoms: R06.09 - Other forms of dyspnea Study Quality: Adequate ECG Rhythm: Sinus Conclusions: - The left ventricular systolic function is normal. The calculated ejection fraction is 67% by biplane method. - There is mild mitral valve regurgitation. - There is mild tricuspid valve regurgitation. Findings Left Ventricle Normal left ventricular cavity size. There is normal left ventricular wall thickness. The left ventricular systolic function is normal. The calculated ejection fraction is 67% by biplane method. There is no evidence of regional wall motion abnormalities. Diastolic function is normal for age. Right Ventricle Normal right ventricular cavity size and systolic function. Atria Both atria are normal in size. Aortic Valve There is a normal trileaflet aortic valve. There is no aortic valve stenosis. There is no aortic valve regurgitation. Mitral Valve The mitral valve appears normal. There is mild mitral valve regurgitation. There is no mitral valve stenosis. Pulmonic Valve The pulmonic valve is likely normal. Tricuspid Valve There is mild tricuspid valve regurgitation. There is no evidence of pulmonary hypertension. Great Vessels The asc aorta and aortic arch are normal in size. Venous The inferior vena cava is normal in size and collapses greater than 50% with inspiration. Pericardium/Pleural There is no evidence of pericardial effusion. Prior Study Comparison No prior study available for comparison. Measurements 2D Linear Measurements IVSd: 0.92 0.6-0.9/0.6-1.0 cm LVIDd: 4.79 3.9-5.3/4.2-5.9 cm LVIDd Index: 2.44 2.4-3.2/2.2-3.1 cm/m2 LVIDs: 3.10 2.0-3.6 cm LVPWd: 0.79 0.7-1.1 cm LA Diam: 2.80 2.7-3.8/3.0-4.0 cm LAIDs Index: 1.43 1.5-2.3 cm/m2 LV Mass: 172.24 67-162/88-224 g LV Mass Index: 87.88 43-95/49-115 g/m2 LVOT Diam: 2.00 3.0+(-)1.3 cm 2D Systolic Function EF 4C: 67.00 >55% EF 2C: 65.30 >55% EF BiP: 66.90 >55% Mitral Valve MV Pk E: 1.08 MV PK A: 0.82 MV Decel Time: 234.00 E/A: 1.30 E'Lateral: 9.68 E'Medial: 5.33 E/E' Med: 20.30 E/E' Lat: 11.20 PHT: 69.00 MVA PHT: 3.19 Decel [place]: 4.59 Aortic Valve AoV Pk Eleazar: 1.83 AoV Mn Eleazar: 1.24 AoV VTI: 0.40 AoV Pk Grad: 13.00 Aov Mn Grad: 7.00 ANDRES Cont.VTI: 2.50 LVOT LVOT Pk Eleazar: 1.34 LVOT Mn Eleazar: 0.96 LVOT VTI: 0.32 LVOT Pk Grad: 7.00 LVOT Mn Grad: 4.00 LVOT Diam: 2.00 LVOT Area: 3.14 Diastolic Function MV Pk E: 1.08 MV Pk A: 0.82 E/A: 1.30 E'Medial: 5.33 E/E' Med: 20.30 E' Laterial: 9.68 E/E' Lat: 11.20 Right Ventricle TAPSE (mm): 23.60 TVS' Eleazar: 12.40 Tricuspid Valve TR Pk Eleazar: 2.64 TR Pk Grad: 28.00 RA Press: 3.00 RVSP: 31.00 Great Vessels Aorta Sinus of Valsalva: 3.13 2.0-3.[address] Ridge: 2.65 1.7-3.4 cm Ao Asc: 3.70 2.1-3.4 cm Ao Arch: 3.20 Updated in Other Vendor System with Status of Final Noble Morales MD electronically signed on 11/08/2024 12:01:08 PM with status of Final
== END ==
LOC: HO.CARD 10:58
PROVIDERS: PCP Internal Medicine; Visit Provider Internal Medicine
DX: R06.09 Other forms of dyspnea (principal); I20.9 Angina pectoris, unspecified
CPT/HCPCS: 93306

== ENCOUNTER → 2024-11-06 11:02 | Outpatient (BNV) | payer MEDICARE, SELFPAY | PROVIDERS: PCP Internal Medicine; Visit Provider Internal Medicine | DX: I20.9 Angina pectoris, unspecified (principal) | CPT/HCPCS: 93306 ==

== ENCOUNTER → 2024-11-15 09:25 | Outpatient (REF) | payer MEDICARE, SELFPAY ==
--- NOTE | ~2024-11-15 | NM_ITS ---
EXERCISE MYOCARDIAL PERFUSION STUDY INDICATION: Angina pectoris to evaluate for myocardial ischemia TECHNIQUE: The patient was brought in for an exercise perfusion study on 11/15/2024. Patient performed exercise as per David protocol and was injected 30 mCi of sestamibi once target heart rate was achieved. Images were obtained using the SPECT gamma camera interlaced with the gating device. Images were obtained in supine position. Resting perfusion study was performed on 11/18/2024. Patient was administered 30 mCi of sestamibi intravenously at rest. Images were then obtained in supine position. Images obtained without without CT attenuation. Total DLP 148 mGy-cm. Images were processed with the software and compared side to side in short axis, horizontal long axis and vertical long axis views. FINDINGS: Raw images were reviewed The stress perfusion study showed both attenuated as well as nonattenuated corrected images show minimal thinning of the apex of the LV myocardium. The gated study shows normal LV systolic function with calculated LVEF of greater than 70%. LV cavity is normal in size. The gated study shows normal systolic wall thickening and contraction of segments. Resting study shows no change in perfusion pattern compared to stress perfusion study. Gating at rest reveals normal systolic wall motion with ejection fraction at 67%. The findings are consistent with normal myocardial perfusion. NM/NM cardiolite stress test IMPRESSION: 1. Myocardial perfusion imaging study shows normal myocardial perfusion. 2. Gated LVEF is 67%. 3. Transient ischemic dilatation not present. EKG revealed positive for ischemia. Electronically signed by: Dom Nation MD 11/18/2024 05:04 PM EDT
--- NOTE | 2024-11-15 09:30 | CA_ITS ---
Acquisition Time: 2024-11-15 09:35:45 Total Exercise Time: 00:07:11 Test Indications: ANGINA PECTORIS, DYSPNEA Medications: Protocol: JOELLEN Max HR: 129 BPM 86% of Pred: 150 BPM Max BP: 156/86 mmHG Max Work Load: 8.8 METS Exercise stress test with exercise 7 mins 11 secs of Joellen Protocol, achieving 86% MPHR, with reports of 1/10 chest tightness in the mid sternal with mild SOB, with isolated PVCs, with normotensive response to exercise. With upsloping ST during exercise that changed to downsloping inferiorly and anterolaterally in recovery meeting criteria for ischemia. In later recovery, chest tightness resolved and ST segment improved. Breathing also returned to baseline. Nuclear images pending. Will call PCP office to refer pt to Cardiology. Test reviewed with Dr. Nation. Referred By: Jessica Vernon Electronically Signed By: Abdulkadir Villarreal
== END ==
LOC: HO.CARD 09:25
PROVIDERS: PCP Internal Medicine; Visit Provider Internal Medicine
DX: I20.9 Angina pectoris, unspecified (principal); R06.09 Other forms of dyspnea
CPT/HCPCS: 78452; 93017; A9500

== ENCOUNTER → 2024-11-15 09:30 | Outpatient (BNV) | payer MEDICARE, SELFPAY | PROVIDERS: PCP Internal Medicine | DX: I20.89 Other forms of angina pectoris (principal) | CPT/HCPCS: 78452; 93016; 93018 ==

== ENCOUNTER 2024-11-19 13:35 | Outpatient (AMB) | payer MEDICARE, SELFPAY ==
[2024-11-19 13:48] VITALS: BP 124/78; PULSE 78; RESP 20; TEMP 36.8; O2SAT 96; BMI 33.8
--- NOTE | 2024-11-19 13:48 | MHC.PC.OV ---
Vital Signs 11/19/24 13:48 Height 5 ft 4.5 in Weight 200 lb BMI 33.8 BP 124/78 Blood Pressure Location Lt brachial Position Sitting Respiration 20 Pulse 78 Pulse Source Pulse Oximeter Temp 98.3 F Temp Source Oral Pulse Oximetry (%) 96 Oxygen Delivery Method Room Air Intake Visit Reasons: Followup after stress test Allergies canagliflozin [Invokana] Allergy (Unknown, Verified 10/31/24 09:45) frequent UTI dulaglutide [Trulicity] Allergy (Unknown, Verified 10/31/24 09:45) vomiting metformin Allergy (Unknown, Verified 10/31/24 09:45) diarrhea atorvastatin [From Lipitor] Adverse Reaction (Intermediate, Verified 10/31/24 09:45) Muscle Pain Olmesartan Medoxomil Allergy (Unknown, Uncoded 10/31/24 09:45) palpitations Medication List - Last Reconciled 11/19/24 by Jessica Vernon MD albuterol sulfate 90 mcg/actuation 2 puffs inhalation Q6H PRN blood-glucose sensor (Dexcom G6 Sensor device) 1 ea topical .Every 10 days 90 days blood-glucose transmitter 1 transmitter every 3 months. Use as directed. Breo Ellipta 100-25 mcg/dose (fluticasone furoate-vilanterol) 1 inh inhalation DAILY NS cetirizine (Zyrtec) 10 mg PO DAILY PRN [CPAP Supplies 12 cm H2O,via full mask; DX NORA] cyclosporine 0.05% (Restasis) 1 drp ophthalmic (eye) BID escitalopram oxalate 10 mg PO DAILY esomeprazole magnesium (Nexium 24HR) 20 mg PO DAILY PRN insulin glargine (Basaglar KwikPen U-100 Insulin) subcut insulin lispro (Humalog KwikPen (U-100) Insulin) 1 to 20 unts before each meal based on sliding scale subcut 4 times a day; 90 days irbesartan 75 MG, 1 and 1/2 tabl PO daily; lancets As directed neomycin 0.5% ea topical .topical once a day pen needle, diabetic (BD Ultra-Fine [place] Pen Needle) 1 ea subcut .five times a day 90 days Tobacco use date assessed: 10/31/24 Dental Screening Dental Screen Date: 10/31/24 HPI Followup after stress test HPI Details Patient presents for the follow-up of stress test. She had questionable abnormal EKG part of the stress test but normal nuclear scan perfusion. Patient reports intermittent chest tightness when walking up the stairs or for walks longer than 15 minutes, symptoms resolve with the rest. Her symptoms have not changed for the last few months. Patient denies chest pain, palpitations or chest tightness at rest. She used to see acid dipper and had negative cardiac catheterization about 20 years ago at [facility]. Patient is interested in seeing acid dipper at [facility] and will call with the name. Patient complains of bilateral shoulder pain and decreased range of motion also muscle fatigue when keeping her arms elevated for longer time. Patient denies any weakness or numbness in upper extremities. She is established with a neurosurgeon for cervical radiculopathy but denies any worsening of her chronic neck pain. Patient used to get cortisone injection in the right shoulder but not for the last few years. Insulin-dependent diabetes is slightly better with a fasting glucose below 120 for a few days. Patient has an appointment with computer drafter next month. 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 NORA (obstructive sleep apnea) Radiculopathy, cervical region Diabetic eye exam History of mammogram Left shoulder tendinitis Anxiety and depression Hyperlipidemia Hypertension Type 2 diabetes mellitus Surgical History History of carpal tunnel surgery Hx of biopsy Hx of cataract surgery S/P MALACHI-BSO H/O colonoscopy Family History Father Heart problem Diabetes Mother Hypertension Coronary heart disease Emphysema of lung Diabetes Social History Housing: House Alcohol intake: never Patient Tobacco Use Status: Former Tobacco user e-Cigarette/Vaping Use: Never Used service: No Current occupational status: retired Cognitive needs: No Hearing needs: No Vision needs: Yes Questionnaire Thrive Questionnaire Date Thrive assessed: 10/31/24 AUDIT C Alcohol Use Questionnaire (AUDIT-C) 1. How often do you have a drink containing alcohol?: Monthly or less 2. How many drinks containing alcohol do you have on a typical day when you are drinking?: 1 or 2 3. How often do you have six or more drinks on one occasion?: Never Total Score: 1 DEBBI-7 AMB Questionnaire DEBBI-7 Date DEBBI - 7 assessed: 10/31/24 Source: Developed by Drs. Marco Antonio Mary, Dinorah Sherman, Rafael Vera and colleagues, with an educational ignacio from [employer]. Review of Systems Const All systems reviewed & are unremarkable except as noted in HPI and below Eyes Reports no additional complaints ENT Reports no additional complaints Card Reports no additional complaints Resp Reports no additional complaints GI Reports no additional complaints Reports no additional complaints Physical exam (Primary Care) Vital Signs: Last Vital Signs Temp 98.3 F 11/19/24 13:48 Pulse 78 11/19/24 13:48 Resp 20 11/19/24 13:48 BP 124/78 11/19/24 13:48 Pulse Ox 96 11/19/24 13:48 Oxygen Delivery Method Room Air 11/19/24 13:48 BMI result Body Mass Index 33.8 Tobacco/Smoking Status: Tobacco use Status Tobacco use date assessed 10/31/24 11/19/24 13:49 Patient Tobacco Use Status Former Tobacco user 11/19/24 13:49 e-Cigarette/Vaping Use Never Used 11/19/24 13:49 Thrive Assessment: Date of Thrive Assessment Date Thrive assessed 10/31/24 11/19/24 13:49 Const General: no acute distress HENMT Head: Yes normal to inspection Face and sinus: Yes normal facial exam Neck Neck: Yes no lymphadenopathy and Yes supple Resp Effort & Inspection: normal respiratory effort Auscultation: clear to auscultation bilaterally Cardio Rhythm: regular rhythm Heart sounds: S1 normal heart sound present and S2 normal heart sound present Extrem Other: Other significantly decreased range of motion of both shoulders right more than left, there is anterior lateral aspect tenderness of the right shoulder no soft tissue swelling erythema or warmth. Motor strength is 4/5 proximal and distal upper extremities, deep tendon reflexes are 2+ bilaterally Coding Level of Care Code Est Pt Level 4 (13643) Diagnoses Shoulder pain, bilateral M25.511; M25.512 Type 2 diabetes mellitus E11.9 Hyperlipidemia E78.5 Angina pectoris syndrome I20.9 Assessment & Plan Assessment & Plan (1) Shoulder pain, bilateral: Code(s): M25.511 - Pain in right shoulder; M25.512 - Pain in left shoulder Category: Medical Plan: Obtain x-rays of both shoulders and check CRP PT was recommended but patient declined (2) Type 2 diabetes mellitus: Comment: f/u Madhavi Abbott Code(s): E11.9 - Type 2 diabetes mellitus without complications Category: Medical Plan: ADA diet regular exercise weight loss discussed with the patient continue current treatment follow-up with endocrinology (3) Hyperlipidemia: Comment: intolerant to statins , Lipitor Code(s): E78.5 - Hyperlipidemia, unspecified Category: Medical Plan: Discussion about taking a statin to prevent cardiovascular complications of type 2 diabetes discussed with the patient. Crestor 10 mg daily will be started and lipid profile will be obtained in 2 months. Patient was advised to at coenzyme Q10 as a supplement while taking a statin. (4) Angina pectoris syndrome: Comment: Questionable abnormal exercise stress test based on EKG findings, nuclear scan normal 11/2024, patient will be referred to [facility] Code(s): I20.9 - Angina pectoris, unspecified Category: Medical Plan: Statin will be restarted patient was advised to take 81 mg of aspirin and will be referred to [facility]iology of her choice Orders: Orders XR Shoulder Kulwant min 2V Today M25.511 - Pain in right shoulder, M25.512 - Pain in left shoulder C Reactive Protein Today M25.511 - Pain in right shoulder, M25.512 - Pain in left shoulder Comprehensive [place]. Panel Fast 2 Months E11.9 - Type 2 diabetes mellitus without complications, E78.5 - Hyperlipidemia, unspecified, I10 - Essential (primary) hypertension Complete Blood Count Auto Diff 2 Months E11.9 - Type 2 diabetes mellitus without complications, E78.5 - Hyperlipidemia, unspecified, I10 - Essential (primary) hypertension Lipid Panel 2 Months E11.9 - Type 2 diabetes mellitus without complications, E78.5 - Hyperlipidemia, unspecified, I10 - Essential (primary) hypertension Hemoglobin A1c 2 Months E11.9 - Type 2 diabetes mellitus without complications, E78.5 - Hyperlipidemia, unspecified, I10 - Essential (primary) hypertension Medications: New rosuvastatin 10 mg PO DAILY 90 tabs 0RF
== END 2024-11-19 14:39 | disposition home or self-care (01) ==
LOC: HO.HMCC 13:35
PROVIDERS: PCP Internal Medicine; Visit Provider Internal Medicine
DX: M25.511 Pain in right shoulder (principal); E11.69 Type 2 diabetes mellitus with other specified complication; I20.9 Angina pectoris, unspecified; M25.512 Pain in left shoulder; E78.5 Hyperlipidemia, unspecified

== ENCOUNTER 2024-11-19 13:35 | Outpatient (REF) | payer MEDICARE, SELFPAY ==
--- NOTE | ~2024-11-19 | XR_ITS ---
EXAMINATION: XR SHOULDER 2 OR MORE VIEWS BILATERAL HISTORY: M25.511 - Pain in right shoulder COMPARISON: Comparison is made with the prior examination of the left shoulder dated 08/11/2016. FINDINGS: Six views of the bilateral shoulders are submitted. Osseous mineralization is normal. There is no fracture or dislocation. There is moderate osteoarthritis of both AC joints with joint space narrowing and osteophyte formation. The glenohumeral joint spaces are preserved. The soft tissues are unremarkable. 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 Electronically signed by: Marco Antonio Chaidez MD 11/20/2024 12:57 PM EDT
== END 2024-11-19 13:36 | disposition home or self-care (01) ==
LOC: HO.HMGCX 13:35
PROVIDERS: PCP Internal Medicine; Visit Provider Internal Medicine
DX: M25.512 Pain in left shoulder (principal); M25.511 Pain in right shoulder; E11.9 Type 2 diabetes mellitus without complications; E78.5 Hyperlipidemia, unspecified; I20.9 Angina pectoris, unspecified
CPT/HCPCS: 36415; 73030; 86140; 99212

== ENCOUNTER → 2024-11-19 14:44 | Outpatient (BNV) | payer MEDICARE, SELFPAY | PROVIDERS: PCP Internal Medicine; Visit Provider Radiology Diagnostic Radiology | DX: M25.511 Pain in right shoulder (principal) | CPT/HCPCS: 73030 ==

== ENCOUNTER 2025-02-14 08:44 | Outpatient (REF) | payer MEDICARE, SELFPAY ==
[2025-02-14 10:42] LABS: MANUAL DIFF FLAG NO
[2025-02-14 10:52] LABS: Hemoglobin A1C 257.2345 umol/L; Total Hemoglobin (HGBA1C) 3400.5802 umol/L
[2025-02-14 10:55] LABS: Hematocrit 39.3 % (37.0-47.0); Hemoglobin 13.0 g/dl (12.0-16.0); Imm Gran Abs Auto 0.02 X10*3/uL (0.00-0.03); Imm Gran Pct Auto 0.3 % (0.0-0.4); Lymphocytes Absolute Auto 1.6 X10*3/uL (1.2-4.9); Mean Corpuscular HGB Conc 33.1 g/dl (31.0-35.0); Mean Corpuscular Hemoglobin 26.1 pg (27.0-33.0); Mean Corpuscular Volume 78.8 fL (80.0-98.0); NRBC Abs Auto 0.000 X10*3/uL (0.0-0.012); NRBC Pct Auto 0.0 /100WBC (0.0-0.2); Platelet Count 193 X10*3/uL (160-400); Red Blood Count 4.99 X10*6/uL (4.20-5.50); White Blood Count 5.9 X10*3/uL (4.8-10.8)
[2025-02-14 11:15] LABS: Alanine Aminotransferase 29 U/L (0-31); Albumin Level 4.3 g/dL (3.5-5.0); Alkaline Phosphatase 58 U/L (39-117); Anion Gap 13 (12-20); Aspartate Amino Transferase 31 U/L (5-31); Blood Urea Nitrogen 14 mg/dL (9-16); Calcium 9.1 mg/dL (8.4-10.2); Carbon Dioxide 28 mmol/L (22-29); Chloride 105 mmol/L (96-108); Cholesterol 92 mg/dL (<200); Estimated Glomerular Filt Rate > 60; HDL Cholesterol 33 mg/dL (>40); Potassium 4.5 mmol/L (3.3-5.1); Sodium 141 mmol/L (135-145); Total Protein 7.1 g/dL (6.5-8.0); Triglycerides 74 mg/dL (<150)
== END 2025-02-14 08:45 | disposition home or self-care (01) ==
LOC: HO.HMGCLDS 08:44
PROVIDERS: PCP Internal Medicine; Visit Provider Internal Medicine
DX: E11.9 Type 2 diabetes mellitus without complications (principal); I10 Essential (primary) hypertension; E78.5 Hyperlipidemia, unspecified
CPT/HCPCS: 36415; 80053; 80061; 83036; 85025

== ENCOUNTER 2025-02-21 12:21 | Outpatient (AMB) | payer MEDICARE, SELFPAY ==
[2025-02-21 12:35] VITALS: BP 124/74; PULSE 77; RESP 18; TEMP 36.8; O2SAT 96; BMI 33.8
--- NOTE | 2025-02-21 12:35 | MHC.PC.OV ---
Vital Signs 02/21/25 12:35 Height 5 ft 4.5 in Weight 200 lb BMI 33.8 BP 124/74 Blood Pressure Location Lt brachial Position Sitting Respiration 18 Pulse 77 Pulse Source Pulse Oximeter Temp 98.3 F Temp Source Oral Pulse Oximetry (%) 96 Oxygen Delivery Method Room Air Intake Visit Reasons: Followup labs, shoulder issues Intake Note: Pt is here today for a follow up visit on labs. Allergies canagliflozin (Invokana) Allergy (Unknown, Verified 02/21/25 12:46) frequent UTI dulaglutide (Trulicity) Allergy (Unknown, Verified 02/21/25 12:46) vomiting metformin Allergy (Unknown, Verified 02/21/25 12:46) diarrhea atorvastatin (From Lipitor) Adverse Reaction (Intermediate, Verified 02/21/25 12:46) Muscle Pain Olmesartan Medoxomil Allergy (Unknown, Uncoded 02/21/25 12:46) palpitations Medication List - Last Reconciled 02/21/25 by Jessica Vernon MD albuterol sulfate 90 mcg/actuation 2 puffs inhalation Q6H PRN blood-glucose sensor (Dexcom G6 Sensor device) 1 ea topical .Every 10 days 90 days blood-glucose transmitter 1 transmitter every 3 months. Use as directed. Breo Ellipta 100-25 mcg/dose (fluticasone furoate-vilanterol) 1 inh inhalation DAILY NS cetirizine (Zyrtec) 10 mg PO DAILY PRN [CPAP Supplies 12 cm H2O,via full mask; DX NORA] cyclosporine 0.05% (Restasis) 1 drp ophthalmic (eye) BID escitalopram oxalate 10 mg PO DAILY esomeprazole magnesium (Nexium 24HR) 20 mg PO DAILY PRN insulin glargine (Basaglar KwikPen U-100 Insulin) subcut insulin lispro (Humalog KwikPen (U-100) Insulin) 1 to 20 unts before each meal based on sliding scale subcut 4 times a day; 90 days irbesartan 75 MG, 1 and 1/2 tabl PO daily; lancets As directed neomycin 0.5% ea topical .topical once a day pen needle, diabetic (BD Ultra-Fine [place] Pen Needle) 1 ea subcut .five times a day 90 days rosuvastatin 10 mg PO DAILY Tobacco use date assessed: 02/21/25 Fall risk assessment: No Falls in past year Last assessed Fall Risk: 02/21/25 Dental Screening Dental Screen Date: 02/21/25 Did you have a dental visit in the last 12 months?: Yes Did you have a dental problem in the last 6 months where you did not have access to dental care?: No Was dental information given to patient?: Patient has dentist HPI Followup labs, shoulder issues HPI Details Pt presents for f/u IDDM, HTN, hyperlipid. Pt will have R shoulder surgery. Pt had R sided midback and lower right ribs for a few hours. Pt had negative stress test in November. 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 NORA (obstructive sleep apnea) Radiculopathy, cervical region Diabetic eye exam History of mammogram Left shoulder tendinitis Anxiety and depression Hyperlipidemia Hypertension Type 2 diabetes mellitus Surgical History History of carpal tunnel surgery Hx of biopsy Hx of cataract surgery S/P MALACHI-BSO H/O colonoscopy Family History Father Heart problem Diabetes Mother Hypertension Coronary heart disease Emphysema of lung Diabetes Social History Housing: House Alcohol intake: never Patient Tobacco Use Status: Former Tobacco user e-Cigarette/Vaping Use: Never Used service: No Current occupational status: retired Cognitive needs: No Hearing needs: No Vision needs: Yes Questionnaire Thrive Questionnaire Date Thrive assessed: 10/31/24 I am a: Patient What is your living situation today?: I have a steady place to live Within the past 12 months, did the food you bought not last and you didn't have the money to get more?: Never true Within the past 12 months, did you worry whether your food would run out before you got money to buy more?: Never true Do you have trouble paying for medicines?: No Do you have trouble getting transportation to medical appointments?: No Do you have trouble paying your heating and electricity bill?: No Do you have trouble taking care of your child, family member or friend?: No Do you have trouble with day-to-day activities such as bathing, preparing meals, shopping, managing finances, etc.?: No Are you currently unemployed and looking for a job?: No Are you interested in more education?: No Please select the resources that you would like help with: None Currently or been in a relationship where the following occur: No concerns reported THRIVE Score: 0 DEBBI-7 AMB Questionnaire DEBBI-7 Date DEBBI - 7 assessed: 10/31/24 Source: Developed by Drs. Marco Antonio Mary, Dinorah Sherman, Rafael Vera and colleagues, with an educational ignacio from [employer] Review of Systems Const All systems reviewed & are unremarkable except as noted in HPI and below Eyes Reports no additional complaints ENT Reports no additional complaints Card Reports no additional complaints Resp Reports no additional complaints GI Reports no additional complaints Reports no additional complaints Physical exam (Primary Care) Vital Signs: Last Vital Signs Temp 98.3 F 02/21/25 12:35 Pulse 77 02/21/25 12:35 Resp 18 02/21/25 12:35 BP 124/74 02/21/25 12:35 Pulse Ox 96 02/21/25 12:35 Oxygen Delivery Method Room Air 02/21/25 12:35 BMI result Body Mass Index 33.8 Tobacco/Smoking Status: Tobacco use Status Tobacco use date assessed 02/21/25 02/21/25 12:46 Patient Tobacco Use Status Former Tobacco user 02/21/25 12:46 e-Cigarette/Vaping Use Never Used 02/21/25 12:36 Thrive Assessment: Date of Thrive Assessment Date Thrive assessed 10/31/24 02/21/25 12:36 Currently or been in a relationship where the following occur: No concerns reported Const General: no acute distress HENMT Head: Yes normal to inspection Face and sinus: Yes normal facial exam Mouth: Normal oral and palatal mucosa present Eyes General: appearance normal, both eyes and all related structures Neck Neck: Yes no lymphadenopathy and Yes supple Resp Effort & Inspection: normal respiratory effort Auscultation: clear to auscultation bilaterally Cardio Rhythm: regular rhythm Heart sounds: S1 normal heart sound present and S2 normal heart sound present GI Inspection: Yes normal to inspection Palpation (GI): Soft to palpation Percussion: Yes normal to percussion Auscultation: normal bowel sounds Coding Level of Care Code Est Pt Level 4 (52483) Complex EM visit Add On G2211 Diagnoses Hypertension I10 Angina pectoris syndrome I20.9 Type 2 diabetes mellitus E11.9 Hyperlipidemia E78.5 NORA (obstructive sleep apnea) G47.33 Assessment & Plan Assessment & Plan (1) Hypertension: Code(s): I10 - Essential (primary) hypertension Category: Medical Plan: cont meds (2) Angina pectoris syndrome: Comment: Questionable abnormal exercise stress test based on EKG findings, nuclear scan normal 11/2024, patient is established with [facility] Code(s): I20.9 - Angina pectoris, unspecified Category: Medical Plan: f/u with cardiology (3) Type 2 diabetes mellitus: Comment: f/u Endo Dr. Abbott, poorly controlled, patient declined GLP 1 agonist Code(s): E11.9 - Type 2 diabetes mellitus without complications Category: Medical Plan: A1c is 9.1. Patient has an appointment with park activities coordinator next month. ADA diet increase physical activity weight loss discussed with the patient she will discuss changing the insulin dosage with park activities coordinator to improve glycemic control. Patient declined GLP 1 agonist (4) Hyperlipidemia: Comment: intolerant to Lipitor Code(s): E78.5 - Hyperlipidemia, unspecified Category: Medical Plan: Continue Crestor (5) NORA (obstructive sleep apnea): Comment: Controlled on CPAP Code(s): G47.33 - Obstructive sleep apnea (adult) (pediatric) Category: Medical Plan: Continue CPAP Orders: Orders Microalbumin, Random (w Creat) 3 Months E11.9 - Type 2 diabetes mellitus without complications, E78.5 - Hyperlipidemia, unspecified, I10 - Essential (primary) hypertension Comprehensive [place]. Panel Fast 3 Months E11.9 - Type 2 diabetes mellitus without complications, E78.5 - Hyperlipidemia, unspecified, I10 - Essential (primary) hypertension Lipid Panel 3 Months E11.9 - Type 2 diabetes mellitus without complications, E78.5 - Hyperlipidemia, unspecified, I10 - Essential (primary) hypertension Complete Blood Count Auto Diff 3 Months E11.9 - Type 2 diabetes mellitus without complications, E78.5 - Hyperlipidemia, unspecified, I10 - Essential (primary) hypertension Hemoglobin A1c 3 Months E11.9 - Type 2 diabetes mellitus without complications, E78.5 - Hyperlipidemia, unspecified, I10 - Essential (primary) hypertension
== END 2025-02-21 13:49 | disposition home or self-care (01) ==
LOC: HO.HMCC 12:22
PROVIDERS: PCP Internal Medicine; Visit Provider Internal Medicine
DX: I10 Essential (primary) hypertension (principal); I20.9 Angina pectoris, unspecified; E11.9 Type 2 diabetes mellitus without complications; E78.5 Hyperlipidemia, unspecified; G47.33 Obstructive sleep apnea (adult) (pediatric)

== ENCOUNTER → 2025-02-21 12:21 | Outpatient (BNVA) | payer MEDICARE, SELFPAY | PROVIDERS: PCP Internal Medicine; Visit Provider Internal Medicine | DX: I10 Essential (primary) hypertension (principal); I20.9 Angina pectoris, unspecified; E11.9 Type 2 diabetes mellitus without complications; E78.5 Hyperlipidemia, unspecified; G47.33 Obstructive sleep apnea (adult) (pediatric) | CPT/HCPCS: 99212 ==

== ENCOUNTER 2025-05-26 10:52 | Outpatient (REF) | payer MEDICARE, SELFPAY ==
[2025-05-26 13:18] LABS: MANUAL DIFF FLAG NO
[2025-05-26 13:32] LABS: Hematocrit 42.5 % (37.0-47.0); Hemoglobin 13.5 g/dl (12.0-16.0); Imm Gran Abs Auto 0.02 X10*3/uL (0.00-0.03); Imm Gran Pct Auto 0.3 % (0.0-0.4); Lymphocytes Absolute Auto 1.6 X10*3/uL (1.2-4.9); Mean Corpuscular HGB Conc 31.8 g/dl (31.0-35.0); Mean Corpuscular Hemoglobin 25.2 pg (27.0-33.0); Mean Corpuscular Volume 79.3 fL (80.0-98.0); NRBC Abs Auto 0.000 X10*3/uL (0.0-0.012); NRBC Pct Auto 0.0 /100WBC (0.0-0.2); Platelet Count 242 X10*3/uL (160-400); Red Blood Count 5.36 X10*6/uL (4.20-5.50); White Blood Count 5.8 X10*3/uL (4.8-10.8)
[2025-05-26 13:54] LABS: Alanine Aminotransferase 31 U/L (0-31); Albumin Level 4.5 g/dL (3.5-5.0); Alkaline Phosphatase 65 U/L (39-117); Anion Gap 13 (12-20); Aspartate Amino Transferase 35 U/L (5-31); Blood Urea Nitrogen 13 mg/dL (9-16); Calcium 9.7 mg/dL (8.4-10.2); Carbon Dioxide 28 mmol/L (22-29); Chloride 102 mmol/L (96-108); Cholesterol 95 mg/dL (<200); Estimated Glomerular Filt Rate > 60; HDL Cholesterol 35 mg/dL (>40); Potassium 4.3 mmol/L (3.3-5.1); Sodium 139 mmol/L (135-145); Total Protein 7.8 g/dL (6.5-8.0); Triglycerides 70 mg/dL (<150)
== END 2025-05-26 10:53 | disposition home or self-care (01) ==
LOC: HO.HMGCLDS 10:52
PROVIDERS: PCP Internal Medicine; Visit Provider Internal Medicine
DX: I10 Essential (primary) hypertension (principal); I20.9 Angina pectoris, unspecified; E78.5 Hyperlipidemia, unspecified; E11.9 Type 2 diabetes mellitus without complications
CPT/HCPCS: 36415; 80053; 80061; 83036; 83695; 85025

== ENCOUNTER 2025-05-28 09:00 | Outpatient (REF) | payer MEDICARE, SELFPAY ==
--- NOTE | ~2025-05-28 | XR_ITS ---
EXAMINATION: XR KNEE 1-2 VIEWS BILATERAL CLINICAL INFORMATION: M25.561 - Pain in right knee COMPARISON: Radiographs of the knees on April 15, 2022 and November 22, 2021. TECHNIQUE: Two views of the right knee. FINDINGS: Right: Normal alignment. No fracture. Joint spaces are preserved. Mild degenerative changes of the medial femorotibial compartment with joint marginal osteophytes and subchondral sclerosis of the medial tibial plateau. Tiny posterior patellar spur. Redemonstration of a small calcification adjacent to the medial aspect of the medial femoral condyle, likely within the medial collateral ligament. Calcification of the insertion of the quadriceps tendon onto the patella. Small suprapatellar joint effusion. Left: Normal alignment. No fracture. Joint spaces are preserved. Tiny posterior patellar spur. No suprapatellar joint effusion. XR/XR Knee Kulwant 1or 2V IMPRESSION: Minimal bilateral degenerative changes, right greater than left. Electronically signed by: Demarcus Castañeda MD 05/28/2025 10:29 AM EDT
--- OUTSIDE RECORDS SUMMARY | 2025-05-28 12:08 | XMS_ITS | Clinical Summary ---
Author Organization 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 11/13/19 23 Active DEXCOM G7 SENSOR DeviIndications: Type 2 diabetes mellitus with peripheral neuropathy To monitor blood glucose, to change the sensor every 10 days 9 each 3 07/26/20 23 Active esomeprazole magnesium (NEXIUM 24HR ORAL) Take 20 mg by mouth daily. Active lancets (ONETOUCH DELICA LANCETS) 33 gauge MiscIndications: Type 2 diabetes mellitus with peripheral neuropathy One Touch Delica, to test blood glucose oce daily 100 each 1 01/12/20 24 Active neomycin-polymyx in B-dexAMETHasone (MAXITROL) 3.5 mg/g-10,000 unit/g-0.1 % Oint Place 0.5 inches into each eye nightly at bedtime. 05/24/20 24 Active BD ULTRA-FINE SHELBY PEN NEEDLE 32 gauge x 5/32 NdleIndications: Type 2 diabetes mellitus with peripheral neuropathy Inject 1 each as directed 4 (four) times a day before meals and nightly. 400 each 3 05/31/20 24 Active PEG 400-propylene glycol (SYSTANE) 0.4-0.3 % Drop Place 1 drop into each eye every hour as needed. Active therapeutic multivitamin tablet Take 1 tablet by mouth daily. Active ONETOUCH VERIO Strp stripsIndication s:Type 2 diabetes mellitus with peripheral neuropathy TO TEST BLOOD GLUCOSE ONCE DAILY 100 strip 3 02/04/20 25 Active BASAGLAR KWIKPEN U-100 INSULIN 100 unit/mL (3 mL) InPn injection penIndications:T ype 2 diabetes mellitus with peripheral neuropathy INJECT 80 UNITS UNDER THE SKIN NIGHTLY AT BEDTIME. 75 mL 1 03/05/20 25 Active aspirin 81 mg chewable tablet 81 mg. Acti ve celecoxib (CELEBREX) 200 MG capsule Take 1 capsule by mouth every morning. 02/06/20 25 Active rosuvastatin 10 mg CpSP Take 10 mg by mouth daily. 11/20/19 25 Active oxyCODONE 5 MG immediate release tablet 5 mg. 03/19/20 25 Active NOVOLOG FLEXPEN U-100 INSULIN 100 unit/mL (3 mL) flexpenIndicatio ns:Type 2 diabetes mellitus with peripheral neuropathy INJECT 8-18 UNITS UNDER THE SKIN 3 (THREE) TIMES A DAY WITH MEALS 45 mL 2 05/22/20 25 Active NOVOLOG FLEXPEN U-100 INSULIN 100 unit/mL (3 mL) flexpenIndicatio ns:Type 2 diabetes mellitus with peripheral neuropathy INJECT 8-18 UNITS UNDER THE SKIN 3 (THREE) TIMES A DAY WITH MEALS 45 mL 2 09/16/19 25 025 Discontinued Active Problems Problem Noted Date Diagnosed Date GERD (gastroesophageal reflux disease) 4 Sleep apnea 09/22/2023 High blood pressure disorder 09/22/2023 Type 2 diabetes mellitus with peripheral neuropa thy 12/12/2022 Assessment & Plan (04/01/2025 11:15 AM EDT): Control is improving based upon the patient's dexcom G7 download. No frequent or severe hypoglycemia. Will maintain her current regimen. Continue to work on eating healthy and being active. To call or message with any issues managing her glucose levels. Up to date with ophtho. Labs requested from PCP Assessment & Plan (09/03/2024 10:12 AM EST): Control is improving but not optimal based upon the patient's dexcom G7 download. No frequent or severe hypoglycemia. Her glucose levels were higher over the last week being on vacation prior they were better. Will maintain her current regimen Continue to work on eating healthy and being active. To call or message with any issues managing her glucose levels. Up to date with ophtho. Labs to be done with PCP Assessment & Plan (05/31/2024 1:40 PM EDT): Control suboptimal. No frequent or severe hypoglycemia. High most of the time with a significant spike in the evening after dinner and/or snack. Advised to increase insulin with those meals (vs omit snack/eat less carbs with snack). Using a table for mealtime dosing. Discussed calculations based on carb ratio/correction factor. Asked her to bring in table with her to next visit. Continue to work on eating healthy & keeping active. To call or send in BG with problems with glycemic control. Up to date with ophtho. Foot & nail care good. Umalb/creat up to date, normal. BP under reasonable control. Assessment & Plan (11/21/2023 8:07 AM EDT): Control suboptimal. No frequent or severe hypoglycemia. Discussed timing of insulin in relation to meals & advised to take novolog ~ 15 min AC. Intolerant to metformin/ozempic in the past, might be reasonable to try an alternative GLP1 (e.g. mounjaro to see if tolerates in the future once the supply chain issues have settled down). Continue to work on eating healthy & keeping active. To call or send in BG with problems with glycemic control. Up to date with ophtho. Foot & nail care good. Umalb/creat up to date, normal. BP under reasonable control. Assessment & Plan (09/26/2023 11:06 AM EST): Control is suboptimal based upon the patient's dexcom G7 download. No frequent or severe hypoglycemia. Her glucose levels are running higher than normal, likely due to everything she was dealing with. Will increase both her lantus and her novolog to help with the highs. Continue to work on eating healthy and being active. To call or message with any issues managing her glucose levels. Up to date with [facility]. Labs ordered to be done prior to the next visit Assessment & Plan (03/17/2023 10:08 AM EDT): Control is reasonable but not optimal based upon the patient's dexcom G6 download. No frequent or severe hypoglycemia. Her glucose levels running higher after meals. She has been using a sliding scale for a long time to try and control her post prandial levels. She has been entering her insulin doses and carbs when eating into her dexcom. Will have her try using an insulin to carb ratio at meal times of 1:3 to see if this better controls her glucose levels. She will send a message through the patient portal and let me know how she is doing and if she needs more medications. Continue to work on eating healthy and being active. To call or message with any issues managing her glucose levels. Up to date with [facility]. Labs ordered Assessment & Plan (12/13/2022 3:09 PM EDT): Control is unknown as we are unable to review the patient's recent A1C and her dexcom G6. No frequent or severe hypoglycemia. She has not been good with her diet recently, especially at night. She is going to work on improving her diet, especially the snacking at night. Will maintain her regimen as we cannot safely make insulin adjustments without reviewing her glucose levels. Continue to work on eating healthy and being active. To call or message through the patient gateway with any issues managing her glucose levels. Up to date with [facility] Multinodular goiter Assessment & Plan (04/01/2025 11:14 AM EDT): She is due for her yearly follow up thyroid ultrasound. Orders entered Assessment & Plan (05/31/2024 1:45 PM EDT): Has been euthyroid. Has longstanding MNG. Had an attempt at an FNA on the right a few years ago by previous provider which was very painful & did not yield any sample. Looking back dominant nodule on right has been of stable size dating back at least to 2019. It has somewhat irregular borders, but some spongiform features, no increase in vascularity, and in the past was considered TIRADS 1 (currently TIRADS 4). Given stability, think there is low risk to continue to monitor without repeat FNA attempt. Assessment & Plan (11/21/2023 8:08 AM EDT): Euthyroid. Will repeat ultrasound prior to follow up. Assessment & Plan (12/13/2022 2:58 PM EDT): She is due to have her thyroid ultrasound. Will enter orders to have booked correction current use of insulin Assessment & Plan (09/03/2024 10:11 AM EST): Will maintain her novolog dosing, she will switch to basaglar when she finishes her lantus supply at home. Reviewed timing of insulin at meals when going out to eat Encounters Date Type Department Care Team Description 05/21/2025 Refill [facility] [address] [place] [address] [place] [address] Liv Rios PA-C Medication Refill 05/12/2025 11:42 AM EDT - 05/12/2025 11:59 PM EDT Hospital Encounter [facility], [address] [address] Liv Rios PA-C Discharge Disposition: Home or Self Care 03/26/2025 9:00 AM EDT Office Visit [facility] [place] [address] Liv Rios PA-C Type 2 diabetes mellitus with peripheral neuropathy (Primary Dx); Multinodular goiter 03/26/2025 Orders Only [facility] [address] [place] [address] ProviderAndres MD 03/05/2025 Refill [facility] [address] [place] [address] Liv Rios PA-C Medication Refill from Last 3 Months Immunizations Immunization Administration Dates Next Due RSV Vaccine (monovalent, adjuvanted) 05/29/2023 Social History Tobacco Use Types Packs/Day Years Used Date Smoking Tobacco: Former Cigarettes 1 970 - 1985 Smokeless Tobacco: Never Tobacco Cessation:Counseling Given: Not Answered Alcohol Use Standard Drinks/Week Comments Not Currently 0 (1 standard drink = 0.6 oz pur e alcohol) Education Answer Date Recorded Are you interested in more education? Not on sadia e 12/02/2022 Are you concerned about learning? Not on file 12/02/2022 No 12/02/2022 No 12/02/2022 Digital Access Answer Date Recorded No 01/02/2023 No 01/02/2023 Reliable internet access at home? Not on file 01/02/2023 Device with a working camera? Not on file Comments Unknown Sex and Gender Information Value Date Recorded Sex Assigned at Female 12/27/2022 1:09 PM EDT Legal Sex Female 9:57 PM EDT Gender Identity Female 12/27/2022 1:09 PM EDT Sexual Orientation Straight 12/27/2022 1: 09 PM EDT Last Filed Vital Signs Vital Sign Reading Time Taken Comments Blood Pressure 122/78 03/26/2025 9:22 AM EDT Pulse 75 03/26/2025 9:22 AM EDT Temperature 36.5 C (97.7 F) 11/17/2023 9:33 AM EDT Respiratory Rate 18 12/12/2022 2:59 PM EDT Oxygen Saturation 95% 03/26/2025 9:22 AM EDT Inhaled Oxygen Concentration - - Weight 91.2 kg (201 lb) 09/03/2024 9:36 AM EST Height 162.6 cm (5' 4.02 ) 03/26/2025 9:22 AM ED T Body Mass Index 34.48 09/03/2024 9:36 AM EST Plan of Treatment Upcoming Encounters Date Type Department Care Team (Late st Contact Info) Description 07/11/2025 10:00 AM EST Office Visit [facility] [address] [place] [address] [place] [address] Liv Rios PA-C [address] [place] [address] [facility] 09/24/2025 9:20 AM EST Office Visit [facility] [address] [place] [address] Liv Rios PA-C [address] [place] [address] 12/24/2025 10:40 AM EDT Office Visit [facility] [address] [place] [address] Aviva Abbott MD [address] [address] Health Maintenance Due Date Last Done Comments Adult Td,Tdap Booster 1954 DEPRESSION SCREENING 1966 HEPATITIS C SCREENING 1972 LIPID PANEL 1972 PNEUMOCOCCAL VACCINES (50+ years) (1 of 2 - PCV) 1973 MAMMOGRAM 1994 COLOGUARD 1999 COLONOSCOPY 1999 COLORECTAL CANCER SCREENING 1999 FIT TEST 1999 FOBT 1999 SIGMOIDOSCOPY 1999 VIRTUAL COLONOSCOPY 1999 ZOSTER VACCINES (1 of 2) 2004 OSTEOPOROSIS SCREENING INITI AL (ONE-TIME) 2019 DIABETIC EYE EXAM 12/12/2022 HEMOGLOBIN A1C 03/11/2023 12/09/2022 CREATININE LEVEL 11/06/2024 11/07/2023, 07/25/2023 POTASSIUM LEVEL 11/06/2024 11/07/2023 INFLUENZA VACCINE (#1) 2025 05/16/2023 COVID-19 VACCINE (1 - 2024-2 6 season) 2025 SMOKING Hx and SMOKELESS TOBACCO SCREENING 09/03/2025 09/03/2024 BLOOD PRESSURE 09/26/2025 03/26/2025 RSV VACCINE Completed 05/29/2023 HEPATITIS A VACCINES Aged Out No long er eligible based on patient's age to complete this topic HIB VACCINES Aged Out No longer eligi ble based on patient's age to complete this topic MENINGOCOCCAL VACCINES (ACWY) Aged Out No longer eligible based on patient's age to complete this topic MENINGOCOCCAL VACCINES (B) Aged Out N o longer eligible based on patient's age to complete this topic Medical Devices Not on file Procedures Procedure Name Priority Date/Time Associated Diagnosis Comments US THYROID GLAND Routine 05/12/2025 12:3 3 PM EDT Multinodular goiter HEMOGLOBIN A1C Routine 03/17/2025 9:30 AM EDT BASIC METABOLIC PANEL Routine 11/07/2023 3:34 PM EDT Type 2 diabetes mellitus with peripheral neuropathy OUTSIDE HEMOGLOBIN A1C Routine 12/09/2022 from Last 3 Months or Most Recently Relevant to Health Maintenance Results * US Thyroid Gland (05/12/2025 12:33 PM EDT) Anatomical Region Laterality Modality Neck, Head, Chest Ultrasound 05/12/2025 2:26 PM EDT Impressions 05/12/2025 2:37 PM EDT There is a 1.8 cm TR 4 nodule in the right lobe of the thyroid gland that is indeterminant and does meet the ACR consensus criteria for biopsy. Fine-needle aspiration recommended unless previously biopsied. Narrative 05/12/2025 2:37 PM EDT US THYROID GLAND Referring clinician's provided indication for this examination in Epic: Thyroid Nodule TECHNIQUE: Ultrasound of the thyroid. COMPARISON: 03/25/2024 FINDINGS: Right Thyroid: The right lobe measures 5.2 cm x 1.9 cm x 1.9 cm Nodule #: 1 Maximum size: 18 mm x 14 mm x 12 mm (by my measurement), previously 18 mm x 14 mm x 13 mm. Position: Mid gland Composition: Solid/almost completely solid (2 pts) Echogenicity: Hypoechoic (2 pts) Shape: [id number] (0) Margins: Ill-defined (0 pts) Echogenic Foci: No calcifications (0 pts) Additional Echogenic foci: None (0 pts) Significant change is size (>/= 20% in two dimensions or increase in 2mm): No Change in Features: No ACR TI-RADS total points: 4 ACR TI-RADS risk category: TR4 (4-6 points) ACR TI-RADS recommendation: Fine needle aspiration, unless previously biopsied. No right sided adenopathy is detected. Left Thyroid: The left lobe measures 5.4 cm x 1.4 cm x 1.7 cm No suspicious nodules identified in the left lobe of the thyroid gland No left sided adenopathy is detected. Isthmus: 0.3 cm Nodule #: 2 Maximum size: 8 mm x 8 mm x 4 mm, previously 8 mm x 7 mm x 5 mm Position: Right isthmus Composition: Solid/almost completely solid (2 pts) Echogenicity: Hypoechoic (2 pts) Shape: [id number]-lajj-wuxq (0) Margins: Ill-defined (0 pts) Echogenic Foci: No calcifications (0 pts) Additional Echogenic foci: None (0 pts) Significant change is size (>/= 20% in two dimensions or increase in 2mm): No Change in Features: No ACR TI-RADS total points: 4 ACR TI-RADS risk category: TR4 (4-6 points) ACR TI-RADS recommendation: Follow-up ultrasound in 1 year Parathyroid: A parathyroid adenoma is not identified. Procedure Note Russell Sen MD - 05/12/2025 US THYROID GLAND Referring clinician's provided indication for this examination in Epic:Thyroid Nodule TECHNIQUE: Ultrasound of the thyroid. COMPARISON: 03/25/2024 FINDINGS: Right Thyroid: The right lobe measures 5.2 cm x 1.9 cm x 1.9 cm Nodule #: 1 Maximum size: 18 mm x 14 mm x 12 mm (by my measurement), previously 18 mmx 14 mm x 13 mm. Position: Mid gland Composition: Solid/almost completely solid (2 pts) Echogenicity: Hypoechoic (2 pts) Shape: [id number]-mzpm (0) Margins: Ill-defined (0 pts) Echogenic Foci: No calcifications (0 pts) Additional Echogenic foci: None (0 pts) Significant change is size (>/= 20% in two dimensions or increase in 2mm):No Change in Features: No ACR TI-RADS total points: 4 ACR TI-RADS risk category: TR4 (4-6 points) ACR TI-RADS recommendation: Fine needle aspiration, unless previouslybiopsied. No right sided adenopathy is detected. Left Thyroid: The left lobe measures 5.4 cm x 1.4 cm x 1.7 cm No suspicious nodules identified in the left lobe of the thyroid gland No left sided adenopathy is detected. Isthmus: 0.3 cm Nodule #: 2 Maximum size: 8 mm x 8 mm x 4 mm, previously 8 mm x 7 mm x 5 mm Position: Right isthmus Composition: Solid/almost completely solid (2 pts) Echogenicity: Hypoechoic (2 pts) Shape: [id number]-[id number] (0) Margins: Ill-defined (0 pts) Echogenic Foci: No calcifications (0 pts) Additional Echogenic foci: None (0 pts) Significant change is size (>/= 20% in two dimensions or increase in 2mm):No Change in Features: No ACR TI-RADS total points: 4 ACR TI-RADS risk category: TR4 (4-6 points) ACR TI-RADS recommendation: Follow-up ultrasound in 1 year Parathyroid: A parathyroid adenoma is not identified. IMPRESSION: There is a 1.8 cm TR 4 nodule in the right lobe of the thyroid gland thatis indeterminant and does meet the ACR consensus criteria for biopsy.Fine-needle aspiration recommended unless previously biopsied. Liv Rios PA-C IMG US THYROID Fi nal Result * Hemoglobin A1c (03/17/2025 9:30 AM EDT) Historical Provider LAB BLOOD ORDERABLES Benita l Result * Basic metabolic panel (11/07/2023 3:34 PM EDT) Blood Liv Rios PA-C LAB BLOOD ORDERABL ES Final Result [facility] [address] [place] [address] * (ABNORMAL) Outside HbA1c (12/09/2022) Hemoglobin A1c - External 8.5(A) 4.3 - 5.8 % us Historical Provider LAB BLOOD ORDERABLES Benita l Result from Last 3 Months or Most Recently Relevant to Health Maintenance Insurance MEDICARE PART A & [place]UE [place] MEDICARE PART A & B [facility] MEDICARE PPO BLUE REPLACEMENT MEDICARE PART A & B [facility] MEDICARE PPO BLUE REPLACEMENT MEDICARE PART A & B Member Subscriber Plan / Payer (Ef fective 2023-Present) Name:Familia Howard Member ID:[id number] Relation to Subscriber:Self Name:Familia Howard Subscriber ID:[id number] Payer ID:[id number] Group ID:Not on file Type:Medicare Address: [employer] [address] [place], [place] [id number] [place] [address] MEDICARE PPO BLUE REPLACEMENT MEDICARE PART A & B Member Subscriber Plan / Payer ( fective 2023-Present) Name:Familia Howard Member ID:[id number] Relation to Subscriber:Self Name:Familia Howard Subscriber ID:[id number] Payer ID:[id number] Group ID:Not on file Type:Medicare Address: [facility] [employer] [facility] [address] [place] [address] [place] [address] MEDICARE PPO BLUE REPLACEMENT MEDICARE PART A & B [facility] MEDICARE PPO BLUE REPLACEMENT Care Teams Winchman/Crane Operator Relationship Specialty Start Date End Date Jessica Vernon MD [address] [facility] [place] [address] PCP - General Internal Medicine 12/08/22 Additional Source Comments The information contained in this document represents components of the legal health record. It is not the complete legal health record.[facility]
== END 2025-05-28 09:01 | disposition home or self-care (01) ==
LOC: HO.HMGCX 09:00
PROVIDERS: PCP Internal Medicine; Visit Provider Internal Medicine
DX: M25.561 Pain in right knee (principal); M25.562 Pain in left knee; E11.9 Type 2 diabetes mellitus without complications; I10 Essential (primary) hypertension; J45.909 Unspecified asthma, uncomplicated; E78.5 Hyperlipidemia, unspecified; Z79.4 Long term (current) use of insulin; Z79.899 Other long term (current) drug therapy
CPT/HCPCS: 73560; 99212

== ENCOUNTER 2025-05-28 09:00 | Outpatient (AMB) | payer MEDICARE, SELFPAY ==
--- NOTE | 2025-05-28 09:02 | A.OFFPC_ITS ---
Vital Signs 05/28/25 09:03 Height 5 ft 4.5 in Weight 202 lb BMI 34.1 BP 124/70 Blood Pressure Location Rt brachial Position Sitting Respiration 18 Pulse 77 Pulse Source Pulse Oximeter Temp 97.8 F Temp Source Oral Pulse Oximetry (%) 97 Oxygen Delivery Method Room Air Intake Visit Reasons: 3 month follow up Intake Note: Pt is here today for 3 months follow up visit. Allergies canagliflozin (Invokana) Allergy (Unknown, Verified 05/28/25 09:09) frequent UTI dulaglutide (Trulicity) Allergy (Unknown, Verified 05/28/25 09:09) vomiting metformin Allergy (Unknown, Verified 05/28/25 09:09) diarrhea atorvastatin (From Lipitor) Adverse Reaction (Intermediate, Verified 05/28/25 09:09) Muscle Pain semaglutide (From Ozempic) Adverse Reaction (Intermediate, Verified 05/28/25 09:55) Vomiting Olmesartan Medoxomil Allergy (Unknown, Uncoded 05/28/25 09:09) palpitations Medication List - Last Reconciled 05/28/25 by Jessica Vernon MD albuterol sulfate 90 mcg/actuation 2 puffs inhalation Q6H PRN amlodipine 5 mg PO DAILY blood-glucose sensor (Ion Corecom G6 Sensor device) 1 ea topical .Every 10 days 90 days blood-glucose transmitter 1 transmitter every 3 months. Use as directed. Breo Ellipta 100-25 mcg/dose (fluticasone furoate-vilanterol) 1 inh inhalation DAILY NS cetirizine (Zyrtec) 10 mg PO DAILY PRN [CPAP Supplies 12 cm H2O,via full mask; DX NORA] cyclosporine 0.05% (Restasis) 1 drp ophthalmic (eye) BID escitalopram oxalate 10 mg PO DAILY esomeprazole magnesium (Nexium 24HR) 20 mg PO DAILY PRN insulin glargine (Basaglar KwikPen U-100 Insulin) subcut insulin lispro (Humalog KwikPen (U-100) Insulin) 1 to 20 unts before each meal based on sliding scale subcut 4 times a day; 90 days irbesartan 75 MG, 1 and 1/2 tabl PO daily; lancets As directed neomycin 0.5% ea topical .topical once a day pen needle, diabetic (BD Ultra-Fine [place] Pen Needle) 1 ea subcut .five times a day 90 days rosuvastatin 10 mg PO DAILY Tobacco use date assessed: 02/21/25 Fall risk assessment: No Falls in past year Last assessed Fall Risk: 05/28/25 Dental Screening Dental Screen Date: 02/21/25 HPI 3 month follow up HPI Details Pt presemts for IDDM, HTN, hyperlipid, COPD, stable on meds. 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 NORA (obstructive sleep apnea) Radiculopathy, cervical region Diabetic eye exam History of mammogram Left shoulder tendinitis Anxiety and depression Hyperlipidemia Hypertension Type 2 diabetes mellitus Surgical History History of carpal tunnel surgery Hx of biopsy Hx of cataract surgery S/P MALACHI-BSO H/O colonoscopy Family History Father Heart problem Diabetes Mother Hypertension Coronary heart disease Emphysema of lung Diabetes Social History Housing: House Alcohol intake: never Patient Tobacco Use Status: Former Tobacco user e-Cigarette/Vaping Use: Never Used service: No Current occupational status: retired Cognitive needs: No Hearing needs: No Vision needs: Yes Questionnaire PHQ-9 Over the last 2 weeks, how often have you been bothered by any of the following problems? 1. Little interest or pleasure in doing things: not at all 2. Feeling down, depressed, or hopeless: several days 3. Trouble falling or staying asleep, or sleeping too much: not at all 4. Feeling tired or having little energy: not at all 5. Poor appetite or overeating: not at all 6. Feeling bad about yourself - or that you are a failure or have let yourself or your family down: not at all 7. Trouble concentrating on things, such as reading the newspaper or watching television: not at all 8. Moving or speaking so slowly that other people could have noticed. Or the opposite - being so fidgety or restless that you have been moving around a lot more than usual: not at all 9. Thoughts that you would be better off or of hurting yourself in some way: not at all Total score: 1 Depression Screening Interpretation: Negative Depression Screening Done: Yes Source: Developed by Drs. Marco Antonio Mary, Rafael Cummings and colleagues, with an educational ignacio from [employer]. Thrive Questionnaire Date Thrive assessed: 10/31/24 I am a: Patient What is your living situation today?: I have a steady place to live Within the past 12 months, did the food you bought not last and you didn't have the money to get more?: Never true Within the past 12 months, did you worry whether your food would run out before you got money to buy more?: Never true Do you have trouble paying for medicines?: No Do you have trouble getting transportation to medical appointments?: No Do you have trouble paying your heating and electricity bill?: No Do you have trouble taking care of your child, family member or friend?: No Do you have trouble with day-to-day activities such as bathing, preparing meals, shopping, managing finances, etc.?: No Are you currently unemployed and looking for a job?: No Are you interested in more education?: No Please select the resources that you would like help with: None Currently or been in a relationship where the following occur: No concerns reported THRIVE Score: 0 DEBBI-7 AMB Questionnaire DEBBI-7 Date DEBBI - 7 assessed: 10/31/24 Source: Developed by Drs. Marco Antonio Mary, Rafael Cummings and colleagues, with an educational ignacio from [employer]. Review of Systems Const All systems reviewed & are unremarkable except as noted in HPI and below Eyes Reports no additional complaints ENT Reports no additional complaints Card Reports no additional complaints Resp Reports no additional complaints GI Reports no additional complaints Reports no additional complaints Physical exam (Primary Care) Vital Signs: Last Vital Signs Temp 97.8 F 05/28/25 09:03 Pulse 77 05/28/25 09:03 Resp 18 05/28/25 09:03 BP 124/70 05/28/25 09:03 Pulse Ox 97 05/28/25 09:03 Oxygen Delivery Method Room Air 05/28/25 09:03 BMI result Body Mass Index 34.1 Tobacco/Smoking Status: Tobacco use Status Tobacco use date assessed 02/21/25 05/28/25 09:10 Patient Tobacco Use Status Former Tobacco user 05/28/25 09:10 e-Cigarette/Vaping Use Never Used 05/28/25 09:10 PHQ-9: PHQ-9 Score PHQ-9: Total score 1 05/28/25 09:43 Depression Screening Interpretation: Negative Thrive Assessment: Date of Thrive Assessment Date Thrive assessed 10/31/24 05/28/25 09:10 Currently or been in a relationship where the following occur: No concerns reported Const General: no acute distress HENMT Head: Yes normal to inspection Face and sinus: Yes normal facial exam Mouth: Normal oral and palatal mucosa present Throat: Yes posterior oropharynx normal Eyes General: appearance normal, both eyes and all related structures Neck Neck: Yes no lymphadenopathy and Yes supple Resp Effort & Inspection: normal respiratory effort Auscultation: clear to auscultation bilaterally Cardio Rhythm: regular rhythm Heart sounds: S1 normal heart sound present and S2 normal heart sound present GI Inspection: Yes normal to inspection Palpation (GI): Soft to palpation Percussion: Yes normal to percussion Auscultation: Hypoactive bowel sounds present Coding Level of Care Code Est Pt Level 4 (97933) Diagnoses Knee pain, bilateral M25.561; M25.562 Type 2 diabetes mellitus E11.9 Hypertension I10 Asthma J45.909 Hyperlipidemia E78.5 Assessment & Plan Assessment & Plan (1) Knee pain, bilateral: Code(s): M25.561 - Pain in right knee; M25.562 - Pain in left knee Category: Medical Plan: For chronic bilateral knee pain x-ray will be obtained and physical therapy was recommended but patient (2) Type 2 diabetes mellitus: Comment: f/u Endo Dr. Abbott, poorly controlled, patient declined GLP 1 agonist Code(s): E11.9 - Type 2 diabetes mellitus without complications Category: Medical Plan: A1c is 9.2. 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 She is contemplating trying insulin pump for poorly controlled diabetes. ADA diet increase exercise discussed with the patient (3) Hypertension: Code(s): I10 - Essential (primary) hypertension Category: Medical Plan: Continue current medications (4) Asthma: Code(s): J45.909 - Unspecified asthma, uncomplicated Category: Medical Plan: Continue Breo Ellipta (5) Hyperlipidemia: Comment: intolerant to Lipitor Code(s): E78.5 - Hyperlipidemia, unspecified Category: Medical Plan: Continue crestor Orders: Orders XR Knee Kulwant 1or 2V Today M25.561 - Pain in right knee, M25.562 - Pain in left knee Comprehensive [place]. 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
[2025-05-28 09:03] VITALS: BP 124/70; PULSE 77; RESP 18; TEMP 36.6; O2SAT 97; BMI 34.1
== END 2025-05-28 11:12 | disposition home or self-care (01) ==
LOC: HO.HMCC 09:01
PROVIDERS: PCP Internal Medicine; Visit Provider Internal Medicine
DX: M25.561 Pain in right knee (principal); M25.562 Pain in left knee; E11.9 Type 2 diabetes mellitus without complications; I10 Essential (primary) hypertension; J45.909 Unspecified asthma, uncomplicated; E78.5 Hyperlipidemia, unspecified

== ENCOUNTER → 2025-05-28 10:03 | Outpatient (BNV) | payer MEDICARE, SELFPAY | PROVIDERS: PCP Internal Medicine; Visit Provider Radiology Body Imaging | DX: M25.561 Pain in right knee (principal) | CPT/HCPCS: 73560 ==